=== PATIENT | female | born 1965 | race African-American/Black ===

== ENCOUNTER 2020-04-22 07:31 | Outpatient (CLI) | payer OTHER, SELFPAY ==
[2020-04-22 08:13] LABS: Add Urine Microscopic? YES; Appearance Urine Clear (Clear); Bacteria Urine Trace /hpf; Bilirubin Urine Negative (Negative); Blood Urine Negative (Negative); Color Urine Straw (Yellow); Glucose Urine UA Negative (Negative); Ketones Urine Negative (Negative); Leukocyte Esterase Ur Trace LEU/UL (Negative); Mucus Urine Rare /lpf; Nitrate Urine Negative (Negative); Protein Urine Negative (Negative); RBC Urine 0-2 /hpf (0-2); Specific Grav Ur 1.012 (1.001-1.035); Squamous Epithelial Cell Urine Occasional /hpf (Few); Urobilinogen Urine Negative mg/dL (<2.0); WBC Urine 0-3 /hpf
== END 2020-04-22 07:32 | disposition home or self-care (01) ==
LOC: ANHLAB 07:34
PROVIDERS: PCP Family Medicine; Visit Provider Family Medicine
DX: M54.6 Pain in thoracic spine (principal)
CPT/HCPCS: 81001

== ENCOUNTER 2020-04-22 07:58 | Outpatient (RCR) | payer OTHER, SELFPAY ==
--- NOTE | 2020-04-22 09:05 | PTOPEVAL ---
Thank you for referring Meka Davis to [facility] [place] 2[place]? The patient is scheduled to be seen for therapy? 3 x/week for 3 weeks. Please review, sign, date and return this plan of care BONNIE. I agree with and certify that the following plan of care is medically necessary. Referring Physician Date Admitting Provider: Attending Provider: Vitor Harding, Referring Provider: Vitor Harding, *PT Outpatient Evaluation Start: 04/22/20 08:02 Freq: Status: Active Protocol: Document 04/22/20 08:05 [facility] (Rec: 04/22/20 08:45 [facility] [id number]) Therapy Assessment Status Assessment Status Assessment Status Evaluation Outpatient Past Medical History Past Medical History Source of Past Medical History Patient Cardiovascular History Hx Hypertension Yes Evaluation Information Problem Diagnosis Acute thoracic pain Additional Evaluation Detail Reports lingering mild irritable pain that increases throughout the day. States she 's had this lingering pain before and knows she has poor posture. Reports no limitations with walking or sitting, some pain with standing, and some pain with work/household duties. Pt can only lift light weights. Subjective Information Pt reports she spent a weekend Query Text:As Reported By Patient/ moving exercise equipment Family around two weeks ago when she over did it. That monday she could hardly move due to mid back pain. 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 Her sap solution manager consultant ended up sending her home early. She went to Dr. Gottlieb on 04/16 where he prescribed her an anti inflammatory and meloxicam. She returned to work the next day 04/17 and reports she was able to do more at work with less pain. That she started feeling Pain Assessment Timing of Pain Assessment Timing of Pain Assessment Assessment Self Report Self Report Pain Level 0 Pain Score Pain Score 0: Self
--- NOTE | 2020-04-29 09:07 | PCPTNOTE ---
Pt called to cancel her remaining therapy appointment due to multiple deaths in the family. Will DC therapy services at this time.
--- NOTE | 2020-04-29 09:08 | PCPTNOTE ---
Admitting Provider: Attending Provider: Vitor HardingMD Patient:Meka Davis Date of :1965 Discharge Note Patient has not returned for any further treatments since 04/22/2020, therefore she will be discharged at this time. Patient?s initial visit was on 04/22/2020 08:00 and she had a total of 1 visits. She called to request all visits to be cancelled due to deaths in the family. The goals have been not met. Thank you for referring this patient to [facility]. Please review, sign, date and return this discharge summary BONNIE. I have been updated about the patient's current status and I agree with discharge from the above service at this time. Referring Physician Date
== END 2020-07-06 10:06 | disposition home or self-care (01) ==
LOC: ANHPT 07:58
PROVIDERS: PCP Family Medicine; Referring Provider Family Medicine; Visit Provider Family Medicine
DX: M54.6 Pain in thoracic spine (principal)
CPT/HCPCS: 97110; 97161

== ENCOUNTER 2020-10-23 14:46 | Outpatient (CLI) | payer OTHER, SELFPAY ==
[2020-10-23 15:34] LABS: Basophils Percent Auto 0.6 % (0.2-1.2); Eosinophils Absolute Auto 0.1 K/mm3 (0-0.3); Hematocrit 37.5 % (37.0-47.0); Hemoglobin 12.2 g/dL (12.0-15.0); Immature Granulocyte Absolute 0.02 K/mm3 (0.00-0.031); Immature Granulocyte Percent A 0.3 % (0-0.5); Lymphocytes Absolute Auto 3.58 K/mm3 (0.9-3.2); Lymphocytes Percent Auto 50.1 % (18.3-44.2); Mean Corpuscular HGB Conc 32.5 g/dl (32-36); Mean Corpuscular Hemoglobin 28.1 pg (26-34); Mean Corpuscular Volume 86.4 fl (80-100); Mean Platelet Volume 8.9 fl (7.4-10.4); Monocytes Absolute Auto 0.5 K/mm3 (0.1-0.6); Monocytes Percent Auto 6.4 % (2.6-8.5); Neutrophils Absolute Auto 2.9 K/mm3 (1.3-6.7); Neutrophils Percent Auto 40.6 % (45.5-73.1); Platelet Count Result 349 k/mm3 (150-375); Red Blood Count 4.34 M/mm3 (4.2-5.4); Red Cell Distribution Width 14.9 % (11.5-14.5); White Blood Count 7.2 K/mm3 (4.5-10.0)
[2020-10-23 15:44] LABS: Alanine Aminotransferase 17 U/L (4-35); Albumin Level 4.2 g/dL (3.5-5.1); Alkaline Phosphatase 85 U/L (38-126); Anion Gap 6 mmol/L (8-16); Aspartate Amino Transferase 29 U/L (14-36); Bilirubin,Total 0.3 mg/dL (0.2-1.3); Blood Urea Nitrogen 10 mg/dL (7-17); Calcium 9.2 mg/dL (8.4-10.2); Carbon Dioxide 30 mmol/L (22-30); Chloride 99 mmol/L (98-107); Cholesterol 249 mg/dL (0-200); Estimated Glomerular Filt Rate > 60; Glucose 84 mg/dL (65-105); HDL Direct 58 mg/dL; Potassium 3.9 mmol/L (3.4-5.0); Sodium 135 mmol/L (137-145); Triglycerides 132 mg/dL (<150); Uric Acid 6.5 mg/dL (2.5-7.5)
[2020-10-23 15:55] LABS: LDL Cholesterol Direct 130 mg/dL
[2020-10-23 16:10] LABS: Erythrocyte Sedimentation Rate 25 mm/hr (0-20)
[2020-10-23 17:04] LABS: Hepatitis C Virus Antibody Negative (Negative)
[2020-10-23 17:14] LABS: Rheumatoid Factor < 8.6 IU/ML (<12)
== END 2020-10-23 14:47 | disposition home or self-care (01) ==
PROVIDERS: PCP Family Medicine; Visit Provider Family Medicine
DX: M25.561 Pain in right knee (principal); M25.562 Pain in left knee; M79.642 Pain in left hand; G89.29 Other chronic pain
CPT/HCPCS: 36415; 80048; 80061; 80076; 84550; 85025; 85652; 86038; 86430; 86803

== ENCOUNTER 2020-10-28 15:01 | Outpatient (CLI) | payer OTHER, SELFPAY ==
--- NOTE | ~2020-10-28 | XR_ITS ---
EXAMINATION: XR knee LT 3V DATE: 10/28/2020 16:22 INDICATION: Chronic left knee pain. TECHNIQUE: 3 views of left knee were obtained. COMPARISON: None. FINDINGS: Bone alignment is normal. No fracture. There is mild tricompartmental osteoarthritis charac terized by tiny marginal osteophytes. No knee joint effusion. IMPRESSION: 1. Mild left knee osteoarthritis. Reviewed, dictated and finalized at location A. ER SALES
--- NOTE | ~2020-10-28 | XR_ITS ---
EXAMINATION: XR knee RT 3V DATE: 10/28/2020 16:22 INDICATION: Chronic right knee pain. TECHNIQUE: 3 views of right knee were obtained. COMPARISON: None. FINDINGS: Bone alignment is normal. No fracture. There is mild tricompartmental osteoarthritis charac terized by tiny marginal osteophytes. No knee joint effusion. IMPRESSION: 1. Mild right knee osteoarthritis. Reviewed, dictated and finalized at location A. N FILM EXTRUSION OPERATOR
--- NOTE | ~2020-10-28 | MM_ITS ---
EXAMINATION: MM screening vikram BI w parag HISTORY: Screening mammogram, family history of breast cancer in her mother and sister. TECHNIQUE: Craniocaudal and mediolateral oblique 3-D tomosynthesis images were obtained and synthetic 2-D images were generated. CAD analysis was submitted and interpreted. COMPARISON: No prior mammogram is available for comparison at this institution. BREAST PARENCHYMAL COMPOSITION: The breasts are almost entirely fatty. FINDINGS: RIGHT BREAST: There is focal asymmetry in the upper outer quadrant of the right breast near the site of excisional biopsy. LEFT BREAST: There are indeterminate grouped calcifications in the middle third of the upper inner br east. IMPRESSION: 1. Bilateral breast findings as described above which may represent the patient's baseline however no comparison is currently available. 2. Comparison with prior mammograms is necessary. BI-RADS Category 0: Incomplete: Needs comparison with prior mammograms. Reviewed, dictated and finalized at location A. COMMUNICATION LINES REPAIRER IMPRESSION: 1. Bilateral breast findings as described above which may represent the patient 's baseline however no comparison is currently available. 2. Comparison with prior mammograms is necessary. BI-RADS Category 0: Incomplete: Needs comparison with prior mammograms.
== END 2020-10-28 15:02 | disposition home or self-care (01) ==
PROVIDERS: PCP Family Medicine; Visit Provider Family Medicine
DX: Z12.31 Encounter for screening mammogram for malignant neoplasm of breast (principal); R92.8 Other abnormal and inconclusive findings on diagnostic imaging of breast; M17.0 Bilateral primary osteoarthritis of knee
CPT/HCPCS: 73562; 77063; 77067

== ENCOUNTER 2021-03-03 11:16 | Outpatient (CLI) | payer OTHER, SELFPAY ==
--- NOTE | 2021-03-03 11:30 | NEURO_ITS ---
Impression: # Complains of left hand numbness. # Mild left Carpal Tunnel Syndrome. # No ulnar neuropathy. # Normal needle/EMG exam. Nerve Conduction Studies Anti Sensory Summary Table Stim Site NR Peak (ms) P-T Amp (?V) Site1 Site2 Delta-P (ms) Dist (cm) Eliseo (m/s) Left Median Anti Sensory (2-3nd Digit) Wrist 4.5 13.6 Wrist 2-3nd Digit 4.5 14.0 31 Wrist 4.7 16.9 Wrist 2-3nd Digit 4.5 14.0 31 Left Radial Anti Sensory (Base 1st Digit) Wrist 2.0 38.3 Wrist Base 1st Digit 2.0 0.0 Left Ulnar Anti Sensory (5th Digit) Wrist 2.7 54.7 Wrist 5th Digit 2.7 14.0 52 Motor Summary Table Stim Site NR Onset (ms) O-P Amp (mV) Site1 Site2 Delta-0 (ms) Dist (cm) Eliseo (m/s) Left Median Motor (Abd Poll Brev) Wrist 4.1 2.0 Elbow Wrist 5.1 31.0 61 Elbow 9.2 4.3 Left Ulnar Motor (Abd Dig Minimi) Wrist 2.5 6.5 A Elbow Wrist 4.7 28.0 60 A Elbow 7.2 5.9 F Wave Studies NR F-Lat (ms) L-R F-Lat (ms) Left Median (Mrkrs) (Abd Poll Brev) 28.89 Left Ulnar (Mrkrs) (Abd Dig Min) 27.82 EMG Side Muscle Nerve Root Ins Act Fibs Amp Dur Recrt Comment Left 1stDorInt Ulnar C8-T1 Nml Nml Nml Nml Nml Left Ext Indicis Radial (Post Int) C7-8 Nml Nml Nml Nml Nml Left Ext Digitorum Radial (Post Int) C7-8 Nml Nml Nml Nml Nml Left BrachioRad Radial C5-6 Nml Nml Nml Nml Nml Left PronatorTeres Median C6-7 Nml Nml Nml Nml Nml Left Abd Poll Brev Median C8-T1 Nml Nml Nml Nml Nml MTDD
== END 2021-03-03 11:17 | disposition home or self-care (01) ==
PROVIDERS: PCP Family Medicine; Visit Provider Family Medicine
DX: M79.642 Pain in left hand (principal); G56.02 Carpal tunnel syndrome, left upper limb
CPT/HCPCS: 95886; 95909

== ENCOUNTER 2021-07-26 09:14 | Outpatient (CLI) | payer OTHER, SELFPAY ==
[2021-07-26 10:37] LABS: Alanine Aminotransferase 15 U/L (4-35); Albumin Level 4.1 g/dL (3.5-5.1); Alkaline Phosphatase 83 U/L (38-126); Anion Gap 4 mmol/L (8-16); Aspartate Amino Transferase 23 U/L (14-36); Bilirubin,Total 0.3 mg/dL (0.2-1.3); Blood Urea Nitrogen 18 mg/dL (7-17); Calcium 9.9 mg/dL (8.4-10.2); Carbon Dioxide 31 mmol/L (22-30); Chloride 104 mmol/L (98-107); Cholesterol 254 mg/dL (0-200); Estimated Glomerular Filt Rate 51; Glucose 102 mg/dL (65-110); HDL Direct 59 mg/dL; Potassium 4.3 mmol/L (3.4-5.0); Sodium 139 mmol/L (137-145); Triglycerides 77 mg/dL (<150)
[2021-07-26 10:47] LABS: LDL Cholesterol Direct 146 mg/dL
[2021-07-26 10:53] LABS: Basophils Percent Auto 0.8 % (0.2-1.2); Eosinophils Absolute Auto 0.1 K/mm3 (0-0.3); Eosinophils Percent Auto 2.7 % (0-4.4); Hematocrit 35.8 % (37.0-47.0); Hemoglobin 11.7 g/dL (12.0-15.0); Immature Granulocyte Absolute 0.02 K/mm3 (0.00-0.031); Immature Granulocyte Percent A 0.4 % (0-0.5); Lymphocytes Absolute Auto 2.41 K/mm3 (0.9-3.2); Lymphocytes Percent Auto 47.3 % (18.3-44.2); Mean Corpuscular HGB Conc 32.7 g/dl (32-36); Mean Corpuscular Hemoglobin 27.9 pg (26-34); Mean Corpuscular Volume 85.4 fl (80-100); Monocytes Absolute Auto 0.3 K/mm3 (0.1-0.6); Monocytes Percent Auto 6.5 % (2.6-8.5); Neutrophils Absolute Auto 2.2 K/mm3 (1.3-6.7); Neutrophils Percent Auto 42.3 % (45.5-73.1); Platelet Count Result 367 k/mm3 (150-375); Red Blood Count 4.19 M/mm3 (4.2-5.4); Red Cell Distribution Width 15.1 % (11.5-14.5); White Blood Count 5.1 K/mm3 (4.5-10.0)
[2021-07-26 11:21] LABS: Thyroid Stimulating Hormone Reflex 0.017 uIU/mL (0.465-4.68)
[2021-07-26 12:24] LABS: Free T4 Free Thyroxine Reflex 1.05 ng/dL (0.78-2.19)
== END 2021-07-26 09:15 | disposition home or self-care (01) ==
PROVIDERS: PCP Family Medicine; Visit Provider Family Medicine
DX: I10 Essential (primary) hypertension (principal)
CPT/HCPCS: 36415; 80048; 80061; 80076; 84439; 84443; 84480; 85025

== ENCOUNTER 2021-09-09 14:05 | Outpatient (CLI) | payer OTHER, SELFPAY ==
[2021-09-09 15:00] LABS: Anion Gap 10 mmol/L (8-16); Blood Urea Nitrogen 9 mg/dL (7-17); Calcium 9.7 mg/dL (8.4-10.2); Carbon Dioxide 25 mmol/L (22-30); Chloride 106 mmol/L (98-107); Estimated Glomerular Filt Rate 51; Glucose 100 mg/dL (65-110); Potassium 3.9 mmol/L (3.4-5.0); Sodium 141 mmol/L (137-145)
[2021-09-09 15:49] LABS: Thyroid Stimulating Hormone Reflex 0.023 uIU/mL (0.465-4.68)
[2021-09-10 09:42] LABS: Free T4 Free Thyroxine Reflex 1.21 ng/dL (0.78-2.19)
[2021-09-10 10:43] LABS: Total Triiodothyronine (T3) 1.13 NG/ML (0.97-1.69)
== END 2021-09-09 14:06 | disposition home or self-care (01) ==
LOC: ANHLAB 14:07
PROVIDERS: PCP Family Medicine; Visit Provider Family Medicine
DX: R79.89 Other specified abnormal findings of blood chemistry (principal); Z80.3 Family history of malignant neoplasm of breast
CPT/HCPCS: 36415; 80048; 81162; 84439; 84443; 84480

== ENCOUNTER 2021-09-28 08:47 | Outpatient (CLI) | payer OTHER, SELFPAY ==
--- NOTE | ~2021-09-28 | XR_ITS ---
EXAMINATION: XR chest 2V 09/28/2021 09:06 INDICATION: Thyroid nodule. Nocturnal hypoxemia. PROCEDURE: PA and lateral views of the chest COMPARISON: 09/09/2015 FINDINGS: The lungs are clear. The cardiomediastinal silhouette is within normal limits. There are no pleural effusions. There is no pneumothorax suspected. IMPRESSION: 1: NO ACUTE CARDIOPULMONARY DISEASE. Reviewed, dictated and finalized at location B. R BALANCER
== END 2021-09-28 08:48 | disposition home or self-care (01) ==
LOC: ANHIMG 08:52
PROVIDERS: PCP Family Medicine; Visit Provider Internal Medicine Pulmonary Disease
DX: R91.1 Solitary pulmonary nodule (principal); G47.34 Idiopathic sleep related nonobstructive alveolar hypoventilation; Z86.16 Personal history of COVID-19; Z78.9 Other specified health status; R93.89 Abnormal findings on diagnostic imaging of other specified body structures
CPT/HCPCS: 71046

== ENCOUNTER 2022-03-15 07:28 | Outpatient (CLI) | payer OTHER, SELFPAY ==
[2022-03-15 08:49] LABS: Basophils Percent Auto 0.8 % (0.2-1.2); Eosinophils Absolute Auto 0.1 K/mm3 (0-0.3); Eosinophils Percent Auto 2.4 % (0-4.4); Hematocrit 35.9 % (37.0-47.0); Hemoglobin 11.6 g/dL (12.0-15.0); Immature Granulocyte Absolute 0.01 K/mm3 (0.00-0.031); Immature Granulocyte Percent A 0.2 % (0-0.5); Lymphocytes Absolute Auto 2.21 K/mm3 (0.9-3.2); Lymphocytes Percent Auto 44.6 % (18.3-44.2); Mean Corpuscular HGB Conc 32.3 g/dl (32-36); Mean Corpuscular Hemoglobin 27.2 pg (26-34); Mean Corpuscular Volume 84.3 fl (80-100); Mean Platelet Volume 9.2 fl (7.4-10.4); Monocytes Absolute Auto 0.3 K/mm3 (0.1-0.6); Monocytes Percent Auto 6.1 % (2.6-8.5); Neutrophils Absolute Auto 2.3 K/mm3 (1.3-6.7); Neutrophils Percent Auto 45.9 % (45.5-73.1); Platelet Count Result 341 k/mm3 (150-375); Red Blood Count 4.26 M/mm3 (4.2-5.4); Red Cell Distribution Width 15.5 % (11.5-14.5)
[2022-03-15 08:58] LABS: Alanine Aminotransferase 15 U/L (6-35); Albumin Level 4.1 g/dL (3.5-5.1); Alkaline Phosphatase 73 U/L (38-126); Anion Gap 3 mmol/L (8-16); Aspartate Amino Transferase 22 U/L (14-36); Bilirubin,Total 0.4 mg/dL (0.2-1.3); Blood Urea Nitrogen 18 mg/dL (7-17); Calcium 9.5 mg/dL (8.4-10.2); Carbon Dioxide 29 mmol/L (22-30); Chloride 106 mmol/L (98-107); Cholesterol 258 mg/dL (0-200); Estimated Glomerular Filt Rate 56; Glucose 90 mg/dL (65-110); HDL Direct 67 mg/dL; Potassium 3.8 mmol/L (3.4-5.0); Sodium 138 mmol/L (137-145); Triglycerides 92 mg/dL (<150)
[2022-03-15 09:08] LABS: LDL Cholesterol Direct 114 mg/dL
[2022-03-15 09:45] LABS: Hepatitis C Virus Antibody Negative (Negative)
== END 2022-03-15 07:29 | disposition home or self-care (01) ==
LOC: ANHLAB 07:32
PROVIDERS: PCP Family Medicine; Visit Provider Family Medicine
DX: I10 Essential (primary) hypertension (principal); Z11.59 Encounter for screening for other viral diseases
CPT/HCPCS: 36415; 80048; 80061; 80076; 84443; 85025; 86803

== ENCOUNTER 2022-08-03 10:28 | Outpatient (CLI) | payer OTHER, SELFPAY ==
--- NOTE | ~2022-08-03 | MM_ITS ---
EXAMINATION: MM screening vikram BI w parag HISTORY: Screening mammogram, family history of breast cancer in her mother and sister. TECHNIQUE: Craniocaudal and mediolateral oblique 3-D tomosynthesis images were obtained and synthetic 2-D images were generated. CAD analysis was submitted and interpreted. COMPARISON: 10/28/2020 BREAST PARENCHYMAL COMPOSITION: There are scattered areas of fibroglandular density. FINDINGS: There are stable benign left breast calcifications. No suspicious mass, calcification, or a rchitectural distortion are identified in either breast to suggest malignancy. There has been no susp icious interval change. IMPRESSION: 1. No mammographic evidence of malignancy. 2. Recommend routine screening mammography in one year. BI-RADS Category 2: Benign finding(s). Reviewed, dictated and finalized at location A. IC SAFETY TELECOMMUNICATOR
== END 2022-08-03 10:29 | disposition home or self-care (01) ==
PROVIDERS: PCP Family Medicine; Visit Provider Family Medicine
DX: Z12.31 Encounter for screening mammogram for malignant neoplasm of breast (principal)
CPT/HCPCS: 77063; 77067

== ENCOUNTER 2022-09-05 11:12 | Emergency (ER) | payer OTHER, SELFPAY ==
[2022-09-05 11:21] VITALS: BP 130/82; PULSE 79; RESP 16; TEMP 37; O2SAT 100
--- NOTE | 2022-09-05 11:34 | ED.URI ---
HPI - URI/Sore Throat General Chief Complaint: Upper Respiratory Infection Stated Complaint: Sore Throat Time Seen by Provider: 09/05/22 11:36 Source: patient, RN notes reviewed and old records reviewed Mode of arrival: ambulatory Limitations: no limitations History of Present Illness HPI Narrative: 56-year-old female presents to the [facility] with complaints of a sore throat since yesterday. Has used throat lozenge or. Patient is not talking, is doing all the talking for her. denies any other symptoms. Related Data Home Medications Medication Instructions Recorded Confirmed hydrochlorothiazide 25 mg tablet 25 mg PO DAILY 01/06/22 01/06/22 lisinopril 20 mg tablet 20 mg PO DAILY 01/06/22 01/06/22 omeprazole 20 mg capsule,delayed 20 mg PO DAILY 01/06/22 01/06/22 release potassium chloride 20 mEq 20 meq PO DAILY 01/06/22 01/06/22 tablet,extended release(part/cryst) (Klor-Con M) triamterene 37.5 1 cap PO DAILY 01/06/22 01/06/22 mg-hydrochlorothiazide 25 mg capsule rosuvastatin 5 mg tablet mg 09/05/22 Allergies Allergy/AdvReac Type Severity Reaction Status Date / Time No Known Allergies Allergy Unknown Verified 09/05/22 11:24 Review of Systems Review of Systems: All systems reviewed & are unremarkable except as noted in HPI and below Constitutional: Constitutional: Reports no additional constitutional complaints Eyes: Eyes: Reports no additional eye complaints ENT: Reports as per HPI and Reports sore throat Cardiovascular: Cardiovascular: Reports no additional cardiovascular complaints, Denies chest pain and Denies dyspnea Respiratory: Respiratory: Reports no additional respiratory complaints, Denies chest congestion, Denies cough and Denies dyspnea Gastrointestinal: Gastrointestinal: Reports no additional gastrointestinal complaints, Denies abdominal pain, Denies nausea and Denies vomiting Musculoskeletal: Musculoskeletal: Reports no additional musculoskeletal complaints Integumentary/Breasts: Skin/Breast: Reports system reviewed and no additional complaints, except as docu Neurologic: Reports system reviewed and no additional complaints, except as documented Psychiatric: Psychiatric: Reports no additional psychiatric complaints Allergic/Immunologic: Allergic/Immunologic: Reports no additional allergic/immunologic complaints PMFSH Past Medical History Medical History H/O gastroesophageal reflux (GERD) History of high blood pressure Social History Social History Smoking status: Never smoker Alcohol intake: never Substance use: never Comments At the time of my signature, I reviewed and agree with the nursing past medical, surgical, social, and family history. There is no relevant family history pertinent to the patient complaint. Exam Const: General: cooperative, healthy appearing, comfortable, no acute distress, well developed, alert and well nourished Nutritional Appearance: well nourished Orientation/consciousness: patient oriented x3 Limitations: no limitations HENMT: Head: normal to inspection Ears: hearing grossly normal bilaterally and external ears normal Face/Nose/Sinus: Normal external nose present, Normal nares present, Normal nasal mucous membranes and turbinates present and normal facial exam Face and sinus: normal facial exam Mouth: Yes Normal oral and palatal mucosa present, Yes lip normal and Yes moist mucous membranes Throat: posterior oropharynx normal, uvula midline and postnasal drainage Eyes: General: appearance normal, both eyes and all related structures Alignment and Position: alignment normal Periorbital: periorbital findings normal Conjunctivae: conjunctivae normal Pupils: Equal, round and reactive pupils present EOM: EOMs intact bilaterally Neck: Neck: normal visual inspection, full ROM, no lymphadenopathy and no meninge
== END 2022-09-05 12:08 | disposition home or self-care (01) ==
PROVIDERS: Emergency Provider Nurse Practitioner; PCP Family Medicine
DX: J06.9 Acute upper respiratory infection, unspecified (principal); J02.9 Acute pharyngitis, unspecified; J04.0 Acute laryngitis; Z20.822 Contact with and (suspected) exposure to COVID-19; K21.9 Gastro-esophageal reflux disease without esophagitis; I10 Essential (primary) hypertension
CPT/HCPCS: 87081; 87426; 87804; 87880; 99213; C9803; G0463

== ENCOUNTER 2022-10-22 08:53 | Outpatient (CLI) | payer OTHER, SELFPAY ==
--- NOTE | ~2022-10-22 | CT_ITS ---
EXAMINATION: CTA chest PE protocol DATE: 10/22/2022 10:45 AUTOMOBILE MECHANIC APPRENTICE INDICATION: Chest wall pain. TECHNIQUE: Computed tomographic angiography (CTA) of the chest was performed with 100 mL Omnipaque-35 0 intravenous contrast. The dose-length product was 572.33 mGy-cm. Maximum intensity projection 3D-re constructions of the aorta and other arteries were constructed by the technologist on a separate work station. Automated exposure control and iterative reconstruction technique were employed. COMPARISON: Chest x-ray dated 09/28/2021. FINDINGS: No significant pleural or pericardial effusion. No thoracic lymphadenopathy. Small hiatal h ernia. Heart size normal. No significant vascular abnormality. There are cholecystectomy clips. Study is technically adequate without evidence for pulmonary embolism. There is focal consolidation in the right upper lobe with air bronchograms, compatible with pneumonia. No endobronchial lesions. IMPRESSION: 1. Focal consolidation right upper lobe with air bronchograms, consistent with pneumonia. Recommend f ollow-up x-ray to ensure resolution. 2: No evidence for pulmonary embolism. Reviewed, dictated and finalized at location A. MOBILE MECHANIC APPRENTICE IMPRESSION: 1. Focal consolidation right upper lobe with air bronchograms, consistent with pneumonia. Recommend follow-up x-ray to ensure resolution. 2: No evidence for pulmonary embolism.
[2022-10-22 10:18] LABS: Estimated Glomerular Filt Rate 47
== END 2022-10-22 08:54 | disposition home or self-care (01) ==
PROVIDERS: PCP Family Medicine; Visit Provider Internal Medicine Pulmonary Disease
DX: R07.89 Other chest pain (principal); R91.8 Other nonspecific abnormal finding of lung field
CPT/HCPCS: 71275; Q9967

== ENCOUNTER 2022-11-03 14:37 | Outpatient (CLI) | payer OTHER, SELFPAY ==
--- NOTE | 2022-11-05 15:30 | WPDPFTINT ---
PFT Procedure Performed PFT Procedure Performed Plethysmography (Lung Vol) Diffusing Cap (DLCO) Flow Vol Loop Spirometry w/o Bronchodil PFT Interpretation DOS: 11/03/2022 REQUESTING: Dr. Jonathon Cruz REASON FOR TESTING: Chest wall pain PULMONARY FUNCTION TESTS Repeatability is fair. Spirometry: FEV1 is 1.22 L, 54%, decreased. FVC is 2.64 L, 94%, normal. FEV1 /FVC is 46, reduced, consistent with airflow obstruction. No bronchodilator was administered. Lung volumes: Total lung capacity is 4.54 L, 102%, normal. Residual volume is 1.92 L, 107%, normal. RV/TLC is 42%, normal. No hyperinflation or air trapping. Airway resistance is 1.117 cmH20/L/sec, 71%. Diffusion: DLCO 15.8, 72%, low end of normal. DLCO /VA is 4.35, 97%, normal. Flow volume loop: Flow volume loop is flattened on inspiration and expiration. There were 2 loops to review. IMPRESSION: This study shows a moderately severe obstructive ventilatory impairment, normal lung volumes, and normal diffusion. The flow volume loops show flattening on inspiration and expiration. The reproducibility of the loop was fair. This may or may not be significant. No bronchodilator was administered. No prior studies for comparison. Clinical correlation is advised. Jessica Nair MD
--- NOTE | 2022-11-07 11:07 | WPDSIXMINUTE ---
Six Minute Walk Procedure Procedure Performed Pulmonary Stress Test (6 min walk) Six Minute Walk Six Minute Walk: DOS: 11/03/2022 ? REQUESTING: Dr. Jonathon Cruz ? REASON FOR TESTING: Chest wall pain SIX MINUTE WALK This study was conducted per ATS standards. The patient had an initial saturation of 98% and a pulse of 77. The patient was breathing room air during testing. The saturation ranged from 91% to 100%. Pulse ranged from 73 to 886 beats per minute. The distance walked was 274 m/ 900 ft. The patient had a Sofía dyspnea score of 0.5 at the beginning of the walk and Sofía dyspnea score of 1-2 at the end of the walk. IMPRESSION: This study shows no george hypoxemia. No supplemental oxygen is required with exertion. Jessica Nair MD
--- NOTE | 2022-11-08 01:31 | WPDPFTINT ---
PFT Procedure Performed PFT Procedure Performed Plethysmography (Lung Vol) Diffusing Cap (DLCO) Flow Vol Loop Spirometry w/o Bronchodil PFT Interpretation DOS: 11/03/2022 ? REQUESTING: Dr. Jonathon Cruz ? REASON FOR TESTING: Chest wall pain PULMONARY FUNCTION TESTS Repeatability and reliability was Grade B, fair. Spirometry: FEV1 was 1.22 L, 54%, reduced. FVC was 2.64 L, 94%, normal. FEV1/FVC was 46%, decreased, consistent with airflow obstruction. No bronchodilator was administered. Lung volumes: Total lung capacity was 4.56 L, 102% predicted, normal. Residual volume was 1.92 L, 107% predicted, normal. RV/TLC was 42%, normal. Airway resistance 1.17, 71%, normal. Diffusion: DLCO 15.8, 72% predicted, normal. DLCO/VA is 4.35, 97%, normal. Flow volume loop: Flow volume loop is irregular however this is not reproducible. IMPRESSION: The study shows moderate airflow obstruction with normal lung volumes and diffusion. No bronchodilator was given. Jessica Nair MD
== END 2022-11-03 14:38 | disposition home or self-care (01) ==
PROVIDERS: PCP Family Medicine; Visit Provider Internal Medicine Pulmonary Disease
DX: R07.89 Other chest pain (principal); R91.1 Solitary pulmonary nodule; G25.81 Restless legs syndrome; F51.01 Primary insomnia; Z78.9 Other specified health status; Z86.16 Personal history of COVID-19; G47.34 Idiopathic sleep related nonobstructive alveolar hypoventilation; Z68.34 Body mass index [BMI] 34.0-34.9, adult; R94.2 Abnormal results of pulmonary function studies
CPT/HCPCS: 94375; 94618; 94726; 94729

== ENCOUNTER 2023-01-16 15:44 | Outpatient (CLI) | payer OTHER, SELFPAY ==
[2023-01-16 16:26] LABS: Basophils Percent Auto 0.5 % (0.2-1.2); Eosinophils Absolute Auto 0.1 K/mm3 (0-0.3); Eosinophils Percent Auto 2.4 % (0-4.4); Hemoglobin 13.3 g/dL (12.0-15.0); Immature Granulocyte Absolute 0.02 K/mm3 (0.00-0.031); Immature Granulocyte Percent A 0.3 % (0-0.5); Lymphocytes Absolute Auto 2.78 K/mm3 (0.9-3.2); Mean Corpuscular HGB Conc 32.4 g/dl (32-36); Mean Corpuscular Hemoglobin 28.5 pg (26-34); Mean Corpuscular Volume 87.8 fl (80-100); Mean Platelet Volume 8.8 fl (7.4-10.4); Monocytes Absolute Auto 0.4 K/mm3 (0.1-0.6); Monocytes Percent Auto 6.8 % (2.6-8.5); Neutrophils Absolute Auto 2.5 K/mm3 (1.3-6.7); Platelet Count Result 293 k/mm3 (150-375); Red Blood Count 4.67 M/mm3 (4.2-5.4); Red Cell Distribution Width 14.1 % (11.5-14.5); White Blood Count 5.9 K/mm3 (4.5-10.0)
[2023-01-16 21:13] LABS: Iron 73 ug/dL (37-170)
[2023-01-16 21:22] LABS: Percent Iron Saturation 24 % (20-50)
[2023-01-16 21:39] LABS: Alanine Aminotransferase 27 U/L (6-35); Albumin Level 4.4 g/dL (3.5-5.1); Alkaline Phosphatase 79 U/L (38-126); Anion Gap 4 mmol/L (8-16); Aspartate Amino Transferase 29 U/L (14-36); Bilirubin,Total 0.5 mg/dL (0.2-1.3); Blood Urea Nitrogen 19 mg/dL (7-17); Calcium 9.6 mg/dL (8.4-10.2); Carbon Dioxide 32 mmol/L (22-30); Chloride 103 mmol/L (98-107); Cholesterol 218 mg/dL (0-200); Estimated Glomerular Filt Rate 56; Glucose 59 mg/dL (65-110); HDL Direct 78 mg/dL; LDL Cholesterol Direct 107 mg/dL; Magnesium 2.2 mg/dL (1.6-2.3); Potassium 3.7 mmol/L (3.4-5.0); Sodium 139 mmol/L (137-145); Triglycerides 84 mg/dL (<150)
[2023-01-17 12:49] LABS: Folic Acid > 20.0 ng/mL (2.76->20)
[2023-01-25 05:19] LABS: Red Blood Cell Folate 483 ng/mL RBC (>280)
== END 2023-01-16 15:45 | disposition home or self-care (01) ==
PROVIDERS: PCP Family Medicine
DX: E78.5 Hyperlipidemia, unspecified (principal); D64.9 Anemia, unspecified
CPT/HCPCS: 36415; 80053; 80061; 82607; 82746; 82747; 83540; 83550; 83735; 85025

== ENCOUNTER 2023-04-10 10:23 | Outpatient (CLI) | payer OTHER, SELFPAY ==
--- NOTE | ~2023-04-10 | XR_ITS ---
EXAMINATION: XR abdomen/kub 1V DATE: 04/10/2023 10:40 INDICATION: Right-sided low back pain. TECHNIQUE: A supine view of the abdomen on 2 radiographs was obtained. COMPARISON: None. FINDINGS: There are no dilated loops of bowel. There is a moderate volume of stool in colon. There ar e small calcifications in the pelvis. IMPRESSION: 1. Normal bowel gas pattern. 2. Small calcifications in the pelvis, likely phleboliths. Distal ureteral stone cannot be excluded o n either side. Reviewed, dictated and finalized at location A. IMPRESSION: 1. Normal bowel gas pattern. 2. Small calcifications in the pelvis, likely phleboliths. Distal ureteral ston e cannot be excluded on either side.
== END 2023-04-10 10:24 | disposition home or self-care (01) ==
PROVIDERS: PCP Family Medicine; Visit Provider Family Medicine
DX: M54.50 Low back pain, unspecified (principal); R93.5 Abnormal findings on diagnostic imaging of other abdominal regions, including retroperitoneum
CPT/HCPCS: 74018

== ENCOUNTER 2023-05-24 09:26 | Outpatient (CLI) | payer OTHER, SELFPAY ==
[2023-05-24 10:16] LABS: Basophils Percent Auto 0.4 % (0.2-1.2); Eosinophils Absolute Auto 0.3 K/mm3 (0-0.3); Eosinophils Percent Auto 3.2 % (0-4.4); Hematocrit 35.2 % (37.0-47.0); Hemoglobin 11.4 g/dL (12.0-15.0); Immature Granulocyte Absolute 0.12 K/mm3 (0.00-0.031); Immature Granulocyte Percent A 1.5 % (0-0.5); Lymphocytes Absolute Auto 3.29 K/mm3 (0.9-3.2); Lymphocytes Percent Auto 40.9 % (18.3-44.2); Mean Corpuscular HGB Conc 32.4 g/dl (32-36); Mean Corpuscular Hemoglobin 28.9 pg (26-34); Mean Corpuscular Volume 89.3 fl (80-100); Mean Platelet Volume 8.5 fl (7.4-10.4); Monocytes Absolute Auto 0.6 K/mm3 (0.1-0.6); Monocytes Percent Auto 7.2 % (2.6-8.5); Neutrophils Absolute Auto 3.8 K/mm3 (1.3-6.7); Neutrophils Percent Auto 46.8 % (45.5-73.1); Platelet Count Result 305 k/mm3 (150-375); Red Blood Count 3.94 M/mm3 (4.2-5.4); Red Cell Distribution Width 14.4 % (11.5-14.5); White Blood Count 8.1 K/mm3 (4.5-10.0)
[2023-05-24 10:26] LABS: Alanine Aminotransferase 29 U/L (6-35); Albumin Level 4.1 g/dL (3.5-5.1); Alkaline Phosphatase 101 U/L (38-126); Anion Gap 3 mmol/L (8-16); Aspartate Amino Transferase 31 U/L (14-36); Bilirubin,Total 0.4 mg/dL (0.2-1.3); Blood Urea Nitrogen 12 mg/dL (7-17); Calcium 9.2 mg/dL (8.4-10.2); Carbon Dioxide 33 mmol/L (22-30); Chloride 100 mmol/L (98-107); Estimated Glomerular Filt Rate > 60; Glucose 86 mg/dL (65-110); Sodium 136 mmol/L (137-145)
[2023-05-24 11:26] LABS: Appearance Urine Clear (Clear); Bacteria Urine None Seen /hpf; Bilirubin Urine Negative (Negative); Blood Urine Negative (Negative); Color Urine Yellow (Yellow); Glucose Urine UA Negative (Negative); Ketones Urine Negative (Negative); Leukocyte Esterase Ur 2+ LEU/UL (Negative); Need Manual Microscopic Reviewed; Nitrate Urine Negative (Negative); Non Pathogenic Casts 0-2; Protein Urine Negative (Negative); RBC Urine 0-2 /hpf (0-2); Squamous Epithelial Cell Urine Occasional /hpf (Few); Urobilinogen Urine 0.2 mg/dL (<2.0); WBC Urine 0-5 /hpf
[2023-05-24 11:29] LABS: Add Urine Microscopic? YES
== END 2023-05-24 09:27 | disposition home or self-care (01) ==
PROVIDERS: PCP Family Medicine
DX: R10.9 Unspecified abdominal pain (principal)
CPT/HCPCS: 36415; 80053; 81001; 85025

== ENCOUNTER 2023-05-24 13:00 | Outpatient (CLI) | payer OTHER, SELFPAY ==
--- NOTE | ~2023-05-24 | CT_ITS ---
EXAMINATION: CT abdomen pelvis wo con DATE: 05/24/2023 13:27 INDICATION: . Right flank and low back pain. Difficulty urinating. Elevated serum creatinine. Possibl e kidney stone. TECHNIQUE: Computed tomography (CT) of the abdomen and pelvis was performed without intravenous contr ast. Automated exposure control and iterative reconstruction technique were employed. Exam dose: 848 .37 mGy-cm total exam DLP. COMPARISON: None. FINDINGS: Mild patchy bibasilar atelectasis. Cardiomegaly. No pericardial or pleural effusion. Small sliding hiatal hernia. Status post cholecystectomy. 3.5 mm nonobstructing calculus, upper pole of right kidney. Small linear cortical calcification at the upper pole of the right kidney. No other urinary tract calculus or hydroureteronephrosis. The urinary bladder is unremarkable. Status post hysterectomy. There is mild atherosclerotic calcification and normal caliber of the abdominal aorta. No intraperito ashely or retroperitoneal or pelvic mass lesion or adenopathy or ascites. Normal appendix. Mild colonic diverticulosis; no CT evidence of diverticulitis. No bowel obstruction, bowel wall thick ening, pneumatosis or intraperitoneal free air. Degenerative spurring of the lower thoracic spine. Mild degenerative change of the lumbar spine. No s uspicious osteolytic or osteoblastic lesions. IMPRESSION: 3.5 mm nonobstructing right renal calculus; no ureteral calculus or hydroureteronephrosi s Status post cholecystectomy Normal appendix Mild colonic diverticulosis; no CT evidence of diverticulitis Reviewed, dictated and finalized at Location A. Reviewed, dictated and finalized at location A. IMPRESSION: 3.5 mm nonobstructing right renal calculus; no ureteral calculus o r hydroureteronephrosis Status post cholecystectomy Normal appendix Mild colonic diverticulosis; no CT evidence of diverticulitis
== END 2023-05-24 13:01 | disposition home or self-care (01) ==
PROVIDERS: PCP Family Medicine; Visit Provider Family Medicine
DX: R79.89 Other specified abnormal findings of blood chemistry (principal); R39.198 Other difficulties with micturition; N20.0 Calculus of kidney; K57.90 Diverticulosis of intestine, part unspecified, without perforation or abscess without bleeding; Z90.49 Acquired absence of other specified parts of digestive tract
CPT/HCPCS: 36415; 74176; 80053; 81001; 85025

== ENCOUNTER 2023-07-31 10:40 | Outpatient (CLI) | payer OTHER, SELFPAY ==
--- NOTE | ~2023-07-31 | MM_ITS ---
EXAMINATION: MM screening vikram BI w parag HISTORY: Screening mammogram TECHNIQUE: Craniocaudal and mediolateral oblique 3-D tomosynthesis images were obtained and synthetic 2-D images were generated. CAD analysis was submitted and interpreted. COMPARISON: 08/03/2022, 10/24/2020 bilateral screening mammogram examinations BREAST PARENCHYMAL COMPOSITION: There are scattered areas of fibroglandular density. FINDINGS: Bilateral benign calcifications are again noted. There is no evidence of suspicious mass, c alcification, or architectural distortion to suggest malignancy in either breast. There has been no s uspicious interval change. IMPRESSION: 1. No mammographic evidence of malignancy. 2. Recommend routine screening mammography in one year. BI-RADS Category 2: Benign finding(s). Reviewed, dictated and finalized at location A. NE LATHE SET UP OPERATOR TOOL
== END 2023-07-31 10:41 | disposition home or self-care (01) ==
LOC: ANHIMG 10:42
PROVIDERS: PCP Family Medicine; Visit Provider Family Medicine
DX: Z12.31 Encounter for screening mammogram for malignant neoplasm of breast (principal)
CPT/HCPCS: 77063; 77067

== ENCOUNTER 2023-09-23 10:30 | Outpatient (CLI) | payer OTHER, SELFPAY ==
--- NOTE | ~2023-09-23 | XR_ITS ---
XR lumbar spine min 4V DATE: 09/23/2023 11:01 INDICATION: Chronic worsening lumbar pain, bilateral radiculopathy TECHNIQUE: AP, lateral, coned lateral lumbosacral and bilateral oblique views COMPARISON: None FINDINGS: Mild thoracolumbar levoscoliosis. No fracture or bone destruction, spondylolysis or spondylolisthesis. There is mild degenerative spurr ing of the lumbar spine. The sacroiliac joints are intact. IMPRESSION: Mild degenerative spurring Reviewed, dictated and finalized at location A. BER IMPRESSION: Mild degenerative spurring
[2023-09-23 10:50] LABS: Basophils Percent Auto 0.8 % (0.2-1.2); Eosinophils Absolute Auto 0.1 K/mm3 (0-0.3); Eosinophils Percent Auto 2.5 % (0-4.4); Hematocrit 40.7 % (37.0-47.0); Immature Granulocyte Absolute 0.01 K/mm3 (0.00-0.031); Immature Granulocyte Percent A 0.2 % (0-0.5); Lymphocytes Percent Auto 43.8 % (18.3-44.2); Mean Corpuscular HGB Conc 31.9 g/dl (32-36); Mean Corpuscular Hemoglobin 28.1 pg (26-34); Mean Corpuscular Volume 87.9 fl (80-100); Mean Platelet Volume 8.6 fl (7.4-10.4); Monocytes Absolute Auto 0.3 K/mm3 (0.1-0.6); Monocytes Percent Auto 5.8 % (2.6-8.5); Neutrophils Absolute Auto 2.2 K/mm3 (1.3-6.7); Neutrophils Percent Auto 46.9 % (45.5-73.1); Platelet Count Result 305 k/mm3 (150-375); Red Blood Count 4.63 M/mm3 (4.2-5.4); Red Cell Distribution Width 14.8 % (11.5-14.5); White Blood Count 4.8 K/mm3 (4.5-10.0)
[2023-09-23 11:01] LABS: Alanine Aminotransferase 14 U/L (6-35); Albumin Level 4.1 g/dL (3.5-5.1); Alkaline Phosphatase 82 U/L (38-126); Anion Gap 5 mmol/L (8-16); Aspartate Amino Transferase 22 U/L (14-36); Bilirubin,Total 0.6 mg/dL (0.2-1.3); Blood Urea Nitrogen 12 mg/dL (7-17); Calcium 9.7 mg/dL (8.4-10.2); Carbon Dioxide 30 mmol/L (22-30); Chloride 104 mmol/L (98-107); Cholesterol 259 mg/dL (0-200); Estimated Glomerular Filt Rate > 60; Glucose 84 mg/dL (65-110); HDL Direct 65 mg/dL; Hemoglobin A1C 5.4 % (<5.7); Potassium 4.4 mmol/L (3.4-5.0); Sodium 139 mmol/L (137-145); Triglycerides 84 mg/dL (<150)
[2023-09-23 11:12] LABS: LDL Cholesterol Direct 137 mg/dL
[2023-09-23 11:51] LABS: Vitamin B12 > 1000.0 pg/mL (239-931)
[2023-09-23 12:09] LABS: Vitamin D 25 Hydroxy 48.2 ng/mL
[2023-09-23 12:23] LABS: Thyroid Stimulating Hormone Reflex 0.626 uIU/mL (0.465-4.68)
[2023-09-23 12:32] LABS: Iron 70 ug/dL (37-170)
[2023-09-23 12:40] LABS: Percent Iron Saturation 28 % (20-50)
== END 2023-09-23 10:31 | disposition home or self-care (01) ==
LOC: ANHLAB 10:34
PROVIDERS: PCP Family Medicine; Visit Provider Internal Medicine
DX: M46.06 Spinal enthesopathy, lumbar region (principal); M54.16 Radiculopathy, lumbar region; G25.81 Restless legs syndrome; Z13.1 Encounter for screening for diabetes mellitus; D50.9 Iron deficiency anemia, unspecified; E78.5 Hyperlipidemia, unspecified; Z68.33 Body mass index [BMI] 33.0-33.9, adult; Z13.29 Encounter for screening for other suspected endocrine disorder
CPT/HCPCS: 36415; 72110; 80053; 80061; 82306; 82607; 83036; 83540; 83550; 84443; 85025

== ENCOUNTER 2023-11-15 14:07 | Outpatient (CLI) | payer OTHER, SELFPAY ==
--- NOTE | ~2023-11-15 | XR_ITS ---
EXAMINATION: XR thoracic spine 3V DATE: 11/15/2023 14:34 INDICATION: Pain in thoracic spine. TECHNIQUE: 3 views of thoracic spine on 4 radiographs were obtained. COMPARISON: Chest CT 10/22/2022 FINDINGS: Thoracic kyphosis is noted. There is 4 degrees thoracic levocurvature. Vertebral body heigh ts are normal. Intervertebral disc heights are normal. There are endplate osteophytes at most levels. There is multilevel facet joint osteoarthritis, severe at many levels. Surgical clips in the right u pper quadrant are likely from cholecystectomy. There is a 3 cm mass in right lung upper lobe. IMPRESSION: 1. Mild thoracic spondylosis. 2. Thoracic kyphosis. 3. 3 cm mass in right lung upper lobe suspicious for primary bronchogenic carcinoma. Noncontrast ches t CT is recommended. Reviewed, dictated and finalized at location A. IMPRESSION: 1. Mild thoracic spondylosis. 2. Thoracic kyphosis. 3. 3 cm mass in right lung upper lobe suspicious for primary bronchogenic carci noma. Noncontrast chest CT is recommended.
--- NOTE | ~2023-11-15 | XR_ITS ---
EXAMINATION: XR lumbar spine 6V w bending DATE: 11/15/2023 14:33 INDICATION: Back pain. Postlaminectomy syndrome. TECHNIQUE: 7 views of lumbar spine including flexion and extension views and standing views were obta ined. COMPARISON: Lumbar spine radiographs 09/23/2023 FINDINGS: There is 3 degrees dextrocurvature of lumbar spine. The spine is hypomobile with flexion an d extension. Vertebral body heights are normal. Intervertebral disc heights are normal. There are end plate osteophytes at all levels. There is multilevel mild to moderate facet joint osteoarthritis. Perfecto gical clips in the right upper quadrant are likely from cholecystectomy. IMPRESSION: 1. Mild lumbar spondylosis. Reviewed, dictated and finalized at location A. IMPRESSION: 1. Mild lumbar spondylosis.
== END 2023-11-15 14:08 | disposition home or self-care (01) ==
LOC: ANHIMG 14:10
PROVIDERS: PCP Family Medicine; Visit Provider Anesthesiology Pain Medicine
DX: M43.04 Spondylolysis, thoracic region (principal); M40.294 Other kyphosis, thoracic region; R91.8 Other nonspecific abnormal finding of lung field; M43.06 Spondylolysis, lumbar region; M47.817 Spondylosis without myelopathy or radiculopathy, lumbosacral region
CPT/HCPCS: 72072; 72114

== ENCOUNTER 2023-11-19 10:44 | Outpatient (CLI) | payer OTHER, SELFPAY ==
--- NOTE | ~2023-11-19 | MR_ITS ---
MRI of the lumbar spine Clinical History: Back pain Technique: Axial T2-weighted images, and sagittal T1-weighted, T2-weighted, and T2 fat-sat images wer e acquired. Findings: There is no fracture or subluxation of the lumbar spine. Vertebral bodies maintain normal h eight and alignment. No bone marrow signal abnormality seen. At L1-L2, L2-L3, L3-L4, there is no disc bulge or herniation. There are mild facet joint degenerative changes. No spinal canal stenosis. There is mild bilateral neural foraminal narrowing at L3-L4. Neur al foramina at L1-L2 and L2-L3 are preserved. At L4-L5, there is mild disc bulge and moderate to advanced facet arthropathy. No george central canal stenosis. There is mild bilateral neural foraminal narrowing. At L5-S1, there is no disc bulge or herniation. There is moderate facet arthropathy. No central canal stenosis. There is mild bilateral neural foraminal narrowing. Paravertebral soft tissues are unremarkable. Impression: Mild degenerative spondylosis of the lower lumbar spine, as detailed above. Reviewed, dictated and finalized at [facility] M. Impression: Mild degenerative spondylosis of the lower lumbar spine, as detailed above.
== END 2023-11-19 10:45 | disposition home or self-care (01) ==
PROVIDERS: Visit Provider Anesthesiology Pain Medicine
DX: M47.27 Other spondylosis with radiculopathy, lumbosacral region (principal)
CPT/HCPCS: 72148

== ENCOUNTER 2023-12-05 16:28 | Outpatient (CLI) | payer OTHER, SELFPAY ==
[2023-12-05 17:21] LABS: Erythrocyte Sedimentation Rate 26 mm/hr (0-20)
[2023-12-08 21:24] LABS: Anti Cyclic Citrullinated Pept <16 Units (<20)
== END 2023-12-05 16:29 | disposition home or self-care (01) ==
LOC: ANHLAB 16:29
PROVIDERS: Visit Provider Anesthesiology Pain Medicine
DX: M25.50 Pain in unspecified joint (principal); M79.10 Myalgia, unspecified site
CPT/HCPCS: 36415; 85652; 86200

== ENCOUNTER 2024-01-03 07:30 | Outpatient (RCR) | payer OTHER, SELFPAY ==
--- NOTE | 2023-12-04 11:24 | PTOPEVAL1 ---
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 Her history includes chronic back and leg pain. Self assessment Oswestry score of 38% limitation in activity level. 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 With the evaluation: in standing, she has increased thoracic flexion and lumbar extension curvatures; weakness of trunk and hips; standing trunk extension and prone hip extension increases her pain; Skilled PT services are indicated for modalities to decrease pain, therapeutic exercises to increase trunk and LE strength with education for posture and HEP. Plan of Care Interventions Electrical Stimulation,Hot Pack/Cold Pack,Manual Therapy,Mechanical Traction,Neuro Re-education, Patient Education,Therapeutic Activities, Therapeutic Exercise,Ultrasound,Other Other Interventions taping, IASTM PT Services Indicated Yes Treatment Frequency and 1-2x/wk for 8 visits total Duration These
--- NOTE | 2023-12-04 11:24 | OPREHPOC ---
Outpatient Therapy Plan of Care This is a Multidisciplinary Plan of Care that may contain components documented by all disciplines (PT, OT, and ST.) PT Problem 1 PT Problem #1 Knowledge Deficit PT Goal 1 Goal * indep with HEP PT Problem 2 PT Problem #2 Pain PT Goal 1 Goal 1* decrease pain rating at worst of 7/10 2* Oswestry self assessment rating of 26% limitation in activity 3* pt report awakening from sleep 1 x/week PT Problem 3 PT Problem #3 Impaired Strength PT Goal 1 Goal increase strength for improved mobility and activity level: 1* 2 minute walking test distance of 500' 2* perform R and L mat exercises x 20 reps with good stability
--- NOTE | 2023-12-22 08:31 | PCPTNOTE ---
Patient cancelled secondary to ill.
--- NOTE | 2024-01-10 08:36 | PCPTNOTE ---
Pt NS visit today.
--- NOTE | 2024-01-15 13:04 | PTOPDC ---
Assessment and note entered by Angie Aviles, PT Discharge Information Assessment Status Discharge - Pt Not Present Diagnosis dorsalgia, thoracic pain, muscle spasms, chronic pain Assessment PT Clinical Summary Meka has received 2 PT sessions. She did not show for 1 and called//canceled 1 appointment. She called on 01-11-24 and stated she wanted to cancel all of her remaining therapy appointments; reason was not given. Discharge PT per pt request. The goals were not addressed. Plan of Care PT Services Indicated No
== END 2024-01-15 13:45 | disposition home or self-care (01) ==
LOC: ANHPT 07:30
PROVIDERS: Visit Provider Anesthesiology Pain Medicine
DX: M54.6 Pain in thoracic spine (principal); M54.9 Dorsalgia, unspecified; M79.10 Myalgia, unspecified site; G89.29 Other chronic pain
CPT/HCPCS: 97014; 97110; 97140; 97161; 97530; 99199; G0283

== ENCOUNTER 2024-10-21 12:19 | Outpatient (CLI) | payer OTHER, SELFPAY ==
[2024-10-21 13:28] LABS: Cortisol Random 5.06 ug/dL
--- OUTSIDE RECORDS SUMMARY | 2024-10-21 14:44 | XMS_ITS | Encounter Summary ---
Author Organization [facility] Facility Care Team Providers Care Interior Paneler Name Role Phone No, Physician Primary Care Provider Vitor Harding DO Primary Care Provider + Urbano Donovan MD Unavailable [phone] Michelle Claudio NP Primary Care Provider Encounter Details Date Type Department Care Team (Latest Contact Info) Description 09/11/2018 Orders Only [facility] Provider, MD Gayatri [address] [place] [address] Social History Tobacco Use Types Packs/Day Years Used Date Smoking Tobacco: Never Assessed Comments Unknown Sex and Gender Information Value Date Recorded Sex Assigned at Not on file Legal Sex Female 1:12 AM JAVASCRIPT UI DEVELOPER Gender Identity Female 02/27/2022 8:55 PM CDT Sexual Orientation Straight 02/27/2022 8: 55 PM CDT documented as of this encounter Plan of Treatment Not on file documented as of this encounter Procedures Procedure Name Priority Date/Time Associated Diagnosis Comments PROCEDURE - RESULT 08/10/2018 12 :00 AM JAVASCRIPT UI DEVELOPER documented in this encounter Results * PROCEDURE - RESULT (08/10/2018 12:00 AM JAVASCRIPT UI DEVELOPER) Narrative 08/10/2018 12:00 AM JAVASCRIPT UI DEVELOPER Ordered by an unspecified provider. Historical Provider Final Res ult documented in this encounter Visit Diagnoses Not on filedocumented in this encounter Additional Health Concerns Infection Onset Date Last Indicated Resolved Time COVID: Suspected 08/20/2023 08/20/2023 08/20/2023 9:03 PM JAVASCRIPT UI DEVELOPER COVID19 08/20/2023 08/20/2023 08/30/2023 3:05 AM JAVASCRIPT UI DEVELOPER COVID: Recovered Comment:Added based on recent COVID infection. 08/30/2023 09/18/2023 11/28/2023 3:06 AM C DT documented as of this encounter Care Teams Interior Paneler Relationship Specialty Start Date End Date No, Physician PCP - General 07/14/18 10/17/18 Vitor Harding DO PCP - General 10/18/18 09/17/23 Michelle Claudio NP [address] [place] [address] [place] [address] PCP - General Internal Medicine 09/18/23 Urbano Donovan MD Consulting Physician Plastic Surgery 08/02/22 09/17/23 documented as of this encounter
--- OUTSIDE RECORDS SUMMARY | 2024-10-21 14:44 | XMS_ITS | Encounter Summary ---
Author Organization [facility] Facility Care Team Providers Care Insurance Verify Rep Name Role Phone No, Physician Primary Care Provider [phone] Vitor Harding DO Primary Care Provider + Urbano Donovan MD Unavailable [phone] Michelle Claudio NP Primary Care Provider [phone] Encounter Details Date Type Department Care Team (Latest Contact Info) Description 07/06/2018 Orders Only [facility] Provider, MD Gayatri [address] [place] [address] Social History Tobacco Use Types Packs/Day Years Used Date Smoking Tobacco: Never Assessed Comments Unknown Sex and Gender Information Value Date Recorded Sex Assigned at Not on file Legal Sex Female 1:12 AM BARGE CAPTAIN Gender Identity Female 02/27/2022 8:55 PM CDT Sexual Orientation Straight 02/27/2022 8: 55 PM CDT documented as of this encounter Plan of Treatment Not on file documented as of this encounter Procedures Procedure Name Priority Date/Time Associated Diagnosis Comments SCAN - PATHOLOGY 07/12/2018 12:0 0 AM BARGE CAPTAIN PROCEDURE - RESULT 06/22/2018 12 :00 AM CDT documented in this encounter Results * SCAN - PATHOLOGY (07/12/2018 12:00 AM BARGE CAPTAIN) Narrative 07/12/2018 12:00 AM BARGE CAPTAIN Ordered by an unspecified provider. us Historical Provider MD Final Res ult * PROCEDURE - RESULT (06/22/2018 12:00 AM CDT) Narrative 06/22/2018 12:00 AM CDT Ordered by an unspecified provider. us Historical Provider Final Res ult documented in this encounter Visit Diagnoses Not on filedocumented in this encounter Additional Health Concerns Infection Onset Date Last Indicated Resolved Time COVID: Suspected 08/20/2023 08/20/2023 08/20/2023 9:03 PM BARGE CAPTAIN COVID19 08/20/2023 08/20/2023 08/30/2023 3:05 AM BARGE CAPTAIN COVID: Recovered Comment:Added based on recent COVID infection. 08/30/2023 09/18/2023 11/28/2023 3:06 AM C DT documented as of this encounter Care Teams Insurance Verify Rep Relationship Specialty Start Date End Date No, Physician PCP - General 07/14/18 10/17/18 Vitor Harding DO PCP - General 10/18/18 09/17/23 Michelle Claudio NP [address] [facility] [address] [address] PCP - General Internal Medicine 09/18/23 Urbano Donovan MD Consulting Physician Plastic Surgery 08/02/22 09/17/23 documented as of this encounter
--- OUTSIDE RECORDS SUMMARY | 2024-10-21 14:44 | XMS_ITS | Encounter Summary ---
Author Organization [facility] Facility Care Team Providers Care Grant Writer Name Role Phone No, Physician Primary Care Provider [phone] Vitor Harding DO Primary Care Provider + Urbano Donovan MD Unavailable [phone] Michelle Claudio NP Primary Care Provider [phone] Encounter Details Date Type Department Care Team (Latest Contact Info) Description 08/10/2018 Orders Only [facility] Provider, MD Gayatri [address] [place] [address] Social History Tobacco Use Types Packs/Day Years Used Date Smoking Tobacco: Never Assessed Comments Unknown Sex and Gender Information Value Date Recorded Sex Assigned at Not on file Legal Sex Female 1:12 AM HOG SLAUGHTERER Gender Identity Female 02/27/2022 8:55 PM CDT Sexual Orientation Straight 02/27/2022 8: 55 PM CDT documented as of this encounter Plan of Treatment Not on file documented as of this encounter Procedures Procedure Name Priority Date/Time Associated Diagnosis Comments PROCEDURE - RESULT 08/10/2018 12 :00 AM HOG SLAUGHTERER documented in this encounter Results * PROCEDURE - RESULT (08/10/2018 12:00 AM HOG SLAUGHTERER) Narrative 08/10/2018 12:00 AM HOG SLAUGHTERER Ordered by an unspecified provider. Historical Provider Final Res ult documented in this encounter Visit Diagnoses Not on filedocumented in this encounter Additional Health Concerns Infection Onset Date Last Indicated Resolved Time COVID: Suspected 08/20/2023 08/20/2023 08/20/2023 9:03 PM HOG SLAUGHTERER COVID19 08/20/2023 08/20/2023 08/30/2023 3:05 AM HOG SLAUGHTERER COVID: Recovered Comment:Added based on recent COVID infection. 08/30/2023 09/18/2023 11/28/2023 3:06 AM C DT documented as of this encounter Care Teams Grant Writer Relationship Specialty Start Date End Date No, Physician PCP - General 07/14/18 10/17/18 Vitor Harding DO PCP - General 10/18/18 09/17/23 Michelle Claudio NP [address] [facility] [address] [place] [address] [place] [address] PCP - General Internal Medicine 09/18/23 Urbano Donovan MD Consulting Physician Plastic Surgery 08/02/22 09/17/23 documented as of this encounter
--- OUTSIDE RECORDS SUMMARY | 2024-10-21 14:45 | XMS_ITS | Encounter Summary ---
Author Organization [facility] Healthcare Address [address] [place] [address] Care Team Providers Care Archival Studies Professor Name Role Phone Eulalio Claudiosssergio SONI Primary Care Provider [phone] Encounter Details Date Type Department Care Team (Late st Contact Info) Description 10/16/2023 Orders Only [facility] [address] [place] [address] Scanning, Provider Social History Tobacco Use Types Packs/Day Years Used Date Smoking Tobacco: Never Smokeless Tobacco: Never Alcohol Use Standard Drinks/Week Comments Never 0 (1 standard drink = 0.6 oz pur e alcohol) AUDIT-C Answer Date Recorded Q1: How often do you have a drink containing alc ohol? Never 08/02/2022 Average Number of Drinks Not on file 022 Frequency of Binge Drinking Not on file 07/06 PHQ-2 Answer Date Recorded PHQ-2 Total Score 0 09/18/2023 Personal Safety Answer Date Recorded Have you ever been in or are you currently in a harmful physical or emotional relationship or is someone making you feel afraid or unsafe? Denies 08/20/2023 Comments No Sex and Gender Information Value Date Recorded Sex Assigned at Not on file Legal Sex Female 1:12 AM DUAL RATE DEALER Gender Identity Female 02/27/2022 8:55 PM CDT Sexual Orientation Straight 02/27/2022 8: 55 PM CDT documented as of this encounter Plan of Treatment Not on file documented as of this encounter Procedures Procedure Name Priority Date/Time Associated Diagnosis Comments SCAN - RADIOLOGY/IMAGING 10/16/2023 9:31 PM DUAL RATE DEALER documented in this encounter Results * SCAN - RADIOLOGY/IMAGING (10/16/2023 9:31 PM DUAL RATE DEALER) Anatomical Region Laterality Modality Other us Provider Scanning Final Result documented in this encounter Visit Diagnoses Not on filedocumented in this encounter Additional Health Concerns Infection Onset Date Last Indicated Resolved Time COVID: Recovered Comment:Added based on recent COVID infection. 08/30/2023 09/18/2023 11/28/2023 3:06 AM C DT documented as of this encounter Care Teams Archival Studies Professor Relationship Specialty Start Date End Date Michelle Claudio NP [address] [place] [address] PCP - General Internal Medicine 09/18/23 documented as of this encounter
--- OUTSIDE RECORDS SUMMARY | 2024-10-21 14:45 | XMS_ITS | Encounter Summary ---
Author Organization [facility] Facility Care Team Providers Care Radio Equipment Installer Name Role Phone No, Physician Primary Care Provider [phone] Vitor Harding DO Primary Care Provider + Urbano Donovan MD Unavailable [phone] Michelle Claudio NP Primary Care Provider [phone] Encounter Details Date Type Department Care Team (Latest Contact Info) Description 08/09/2017 Orders Only [facility] Provider, MD Gayatri [address] [place] [address] Social History Tobacco Use Types Packs/Day Years Used Date Smoking Tobacco: Never Assessed Comments Unknown Sex and Gender Information Value Date Recorded Sex Assigned at Not on file Legal Sex Female 1:12 AM CORN HUSK BALER Gender Identity Female 02/27/2022 8:55 PM CDT Sexual Orientation Straight 02/27/2022 8: 55 PM CDT documented as of this encounter Plan of Treatment Not on file documented as of this encounter Procedures Procedure Name Priority Date/Time Associated Diagnosis Comments SCAN - LABS 09/05/2017 12:00 AM CORN HUSK BALER documented in this encounter Results * SCAN - LABS (09/05/2017 12:00 AM CORN HUSK BALER) Narrative 09/05/2017 12:00 AM CORN HUSK BALER Ordered by an unspecified provider. Historical Provider Final Res ult documented in this encounter Visit Diagnoses Not on filedocumented in this encounter Additional Health Concerns Infection Onset Date Last Indicated Resolved Time COVID: Suspected 08/20/2023 08/20/2023 08/20/2023 9:03 PM CORN HUSK BALER COVID19 08/20/2023 08/20/2023 08/30/2023 3:05 AM CORN HUSK BALER COVID: Recovered Comment:Added based on recent COVID infection. 08/30/2023 09/18/2023 11/28/2023 3:06 AM C DT documented as of this encounter Care Teams Radio Equipment Installer Relationship Specialty Start Date End Date No, Physician PCP - General 07/14/18 10/17/18 Vitor Harding DO PCP - General 10/18/18 09/17/23 Michelle Claudio NP [address] [facility] [address] [place] [address] [place] [id number] PCP - General Internal Medicine 09/18/23 Urbano Donovan MD Consulting Physician Plastic Surgery 08/02/22 09/17/23 documented as of this encounter
--- OUTSIDE RECORDS SUMMARY | 2024-10-21 14:45 | XMS_ITS | Encounter Summary ---
Author Organization [facility] Facility Care Team Providers Care Crisis Mental Health Therapist Name Role Phone No, Physician Primary Care Provider [phone] Vitor Harding DO Primary Care Provider + Urbano Donovan MD Unavailable [phone] Michelle Claudio NP Primary Care Provider [phone] Encounter Details Date Type Department Care Team (Latest Contact Info) Description 04/15/2016 Orders Only [facility] Provider, MD Gayatri [address] [place] [address] Social History Tobacco Use Types Packs/Day Years Used Date Smoking Tobacco: Never Assessed Comments Unknown Sex and Gender Information Value Date Recorded Sex Assigned at Not on file Legal Sex Female 1:12 AM OBSTETRICS GYN PHYSICIAN Gender Identity Female 02/27/2022 8:55 PM CDT Sexual Orientation Straight 02/27/2022 8: 55 PM CDT documented as of this encounter Plan of Treatment Not on file documented as of this encounter Procedures Procedure Name Priority Date/Time Associated Diagnosis Comments CARDIOLOGY REPORT 04/15/2016 12: 00 AM CDT CARDIOLOGY REPORT 04/15/2016 12: 00 AM CDT documented in this encounter Results * CARDIOLOGY REPORT (04/15/2016 12:00 AM CDT) Anatomical Region Laterality Modality Other Narrative 04/15/2016 12:00 AM CDT Ordered by an unspecified provider. us Historical Provider CV CARDIAC SERVICES PROCE DURES Final Result * CARDIOLOGY REPORT (04/15/2016 12:00 AM CDT) Anatomical Region Laterality Modality Other Narrative 04/15/2016 12:00 AM CDT Ordered by an unspecified provider. us Historical Provider CV CARDIAC SERVICES PROCE DURES Final Result documented in this encounter Visit Diagnoses Not on filedocumented in this encounter Additional Health Concerns Infection Onset Date Last Indicated Resolved Time COVID: Suspected 08/20/2023 08/20/2023 08/20/2023 9:03 PM OBSTETRICS GYN PHYSICIAN COVID19 08/20/2023 08/20/2023 08/30/2023 3:05 AM OBSTETRICS GYN PHYSICIAN COVID: Recovered Comment:Added based on recent COVID infection. 08/30/2023 09/18/2023 11/28/2023 3:06 AM C DT documented as of this encounter Care Teams Crisis Mental Health Therapist Relationship Specialty Start Date End Date No, Physician PCP - General 07/14/18 10/17/18 Vitor Harding DO PCP - General 10/18/18 09/17/23 Michelle Claudio NP [address] [facility] [address] [place] [address] [place] [address] PCP - General Internal Medicine 09/18/23 Urbano Donovan MD Consulting Physician Plastic Surgery 08/02/22 09/17/23 documented as of this encounter
--- OUTSIDE RECORDS SUMMARY | 2024-10-21 14:45 | XMS_ITS | Encounter Summary ---
Author Organization [facility] Facility Care Team Providers Care Director Retail Brand Development Name Role Phone No, Physician Primary Care Provider [phone] Vitor Harding DO Primary Care Provider + Urbano Donovan MD Unavailable [phone] Michelle Claudio NP Primary Care Provider [phone] Encounter Details Date Type Department Care Team (Latest Contact Info) Description 08/09/2016 Orders Only [facility] Provider, MD Gayatri [address] [place] [address] Social History Tobacco Use Types Packs/Day Years Used Date Smoking Tobacco: Never Assessed Comments Unknown Sex and Gender Information Value Date Recorded Sex Assigned at Not on file Legal Sex Female 1:12 AM PRODUCT SUPPORT REPRESENTATIVE Gender Identity Female 02/27/2022 8:55 PM CDT Sexual Orientation Straight 02/27/2022 8: 55 PM CDT documented as of this encounter Plan of Treatment Not on file documented as of this encounter Procedures Procedure Name Priority Date/Time Associated Diagnosis Comments SCAN - LABS 08/10/2016 12:00 AM PRODUCT SUPPORT REPRESENTATIVE documented in this encounter Results * SCAN - LABS (08/10/2016 12:00 AM PRODUCT SUPPORT REPRESENTATIVE) Narrative 08/10/2016 12:00 AM PRODUCT SUPPORT REPRESENTATIVE Ordered by an unspecified provider. Historical Provider Final Res ult documented in this encounter Visit Diagnoses Not on filedocumented in this encounter Additional Health Concerns Infection Onset Date Last Indicated Resolved Time COVID: Suspected 08/20/2023 08/20/2023 08/20/2023 9:03 PM PRODUCT SUPPORT REPRESENTATIVE COVID19 08/20/2023 08/20/2023 08/30/2023 3:05 AM PRODUCT SUPPORT REPRESENTATIVE COVID: Recovered Comment:Added based on recent COVID infection. 08/30/2023 09/18/2023 11/28/2023 3:06 AM C DT documented as of this encounter Care Teams Director Retail Brand Development Relationship Specialty Start Date End Date No, Physician PCP - General 07/14/18 10/17/18 Vitor Harding DO PCP - General 10/18/18 09/17/23 Michelle Claudio NP [address] [place] [address] [place] [address] PCP - General Internal Medicine 09/18/23 Urbano Donovan MD Consulting Physician Plastic Surgery 08/02/22 09/17/23 documented as of this encounter
--- OUTSIDE RECORDS SUMMARY | 2024-10-21 14:45 | XMS_ITS | Referral Summary ---
Author Organization [facility] [address] [facility] Address [address] [place] [address] Care Team Providers Care French Binding Folder Name Role Phone Michelle Claudio NP Primary Care Provider [phone] Encounters Date Type Department Care Team Description 10/17/2024 1:45 PM AUTOMATIC PAINT SPRAYER OPERATOR Office Visit [facility] Internal Medicine [address] [place] [address] [address] [place] [phone] Michelle Clauido NP BMI 30.0-30.9,adult (Primary Dx); Encounter for drug screening; NAVEEN (generalized anxiety disorder); BRCA2 gene mutation positive in female; Screening mammogram for breast cancer; Encounter for screening colonoscopy; Hypokalemia; Moderate episode of recurrent major depressive disorder (HCC); Mixed hyperlipidemia; Primary hypertension; Restless legs syndrome; Gastroesophageal reflux disease without esophagitis; Primary insomnia; Claustrophobia 08/05/2024 Orders Only [facility] Internal Medicine [address] [place] [phone] Michelle Claudio NP from Last 3 Months Allergies No known active allergies Medications ondansetron ODT (ZOFRAN-ODT) 4 mg disintegrating tablet Take 1 tablet (4 mg total) by mouth every 8 (eight) hours as needed for nausea 20 tablet 05/16/20 24 Active lisinopriL (PRINIVIL,ZESTRIL) 20 mg tabletIndications: Primary hypertension Take 1 tablet (20 mg total) by mouth daily 90 tablet 3 10/17/19 25 Active omeprazole (PriLOSEC) 20 mg capsuleIndications :Gastroesophageal reflux disease without esophagitis Take 1 capsule (20 mg total) by mouth daily 90 capsule 10/17/19 25 Active hydrOXYzine (ATARAX) 25 mg tabletIndications: NAVEEN (generalized anxiety disorder) Take 1 tablet (25 mg total) by mouth nightly 90 tablet 3 10/17/19 25 Active cyclobenzaprine (FLEXERIL) 10 mg tabletIndications: Restless legs syndrome Take 1 tablet (10 mg total) by mouth 3 (three) times a day as needed for muscle spasms 90 tablet 10/17/19 25 Active triamterene-hydroC HLOROthiazide 37.5-25 mg per tablet/capsuleIndi cations:Primary hypertension Take 1 tablet/capsule by mouth daily 90 tablet 3 10/17/19 25 Active potassium chloride ER 20 mEq CR tabletIndications: Hypokalemia Take 1 tablet (20 mEq total) by mouth daily 90 tablet 10/17/19 25 Active eszopiclone (LUNESTA) 1 mg tabletIndications: Insomnia Take 1 tablet (1 mg total) by mouth daily Take immediately before bedtime 90 tablet 1 10/17/19 25 Active tirzepatide, weight loss, (Zepbound) 5 mg/0.5 mL pen injectorIndication s:BMI 30.0-30.9,adult Inject 0.5 mL (5 mg total) under the skin every 7 days 2 mL 10/17/19 25 Active scopolamine 1 mg over 3 days patch [address] 1 patch on the skin every third day as needed (nausea) 4 patch 1 03/13/20 24 025 Discontin ued(Thera py completed ) omeprazole (PriLOSEC) 20 mg capsule TAKE 1 CAPSULE BY MOUTH DAILY 90 capsule 3 04/30/20 24 025 Discontin ued(Reord er) triamterene-hydroC HLOROthiazide 37.5-25 mg per tablet TAKE 1 TABLET BY MOUTH DAILY 90 tablet 3 04/30/20 24 025 Discontin ued(Reord er) lisinopriL (PRINIVIL,ZESTRIL) 20 mg tablet TAKE 1 TABLET BY MOUTH DAILY 90 tablet 3 05/16/20 24 025 Discontin ued(Reord er) potassium chloride ER 20 mEq CR tabletIndications: Hypokalemia TAKE 1 TABLET BY MOUTH DAILY 90 tablet 3 05/16/20 24 025 Discontin ued(Reord er) cyclobenzaprine (FLEXERIL) 10 mg tablet Take 1 tablet (10 mg total) by mouth 3 (three) times a day as needed for muscle spasms 30 tablet 06/27/20 24 025 Discontin ued(Reord er) hydrOXYzine (ATARAX) 25 mg tablet TAKE 1 TABLET BY MOUTH EVERY NIGHT 90 tablet 07/26/20 24 025 Discontin ued(Reord er) tirzepatide, weight loss, (Zepbound) 7.5 mg/0.5 mL pen injector Inject 0.5 mL (7.5 mg total) under the skin every 7 days 2 mL 3 08/05/20 24 025 Discontin ued(Thera py completed ) triamterene-hydroC HLOROthiazide 37.5-25 mg per tablet/capsule Take 1 tablet/capsule by mouth daily 30 tablet 10/04/19 025 Discontin ued(Reord er) potassium chloride ER 20 mEq CR tabletIndications: Hypokalemia Take 1 tablet (20 mEq total) by mouth daily 30 tablet 10/04/19 25 025 Discontin ued(Reord er) omeprazole (PriLOSEC) 20 mg capsule Take 1 capsule (20 mg total) by mouth daily 30 capsule 10/04/19 025 Discontin ued(Reord er) lisinopriL (PRINIVIL,ZESTRIL) 20 mg tablet Take 1 tablet (20 mg total) by mouth daily 30 tablet 10/04/19 25 025 Discontin ued(Reord er) hydrOXYzine (ATARAX) 25 mg tablet Take 1 tablet (25 mg total) by mouth nightly 30 tablet 10/04/19 25 025 Discontin ued(Reord er) Active Problems Problem Noted Date Diagnosed Date Encounter for weight management 12/15/2023 Assessment & Plan (03/14/2024 10:25 AM CDT): We will continue Zepbound at 5 mg with the intention to increase to 7.5 mg at 1 month. Medication was sent to requested pharmacy. Discussed medication desired effects, potential side effects, and how to administer the medication. Nonpharmacological interventions such as low carb diet, high in vegetables and fruit discussed. Educated on importance of physical activity. Congratulated patient on continued results. Follow up in 3 months or sooner if needed. Patient verbalizes understanding regarding plan of care and all questions answered. Assessment & Plan (12/15/2023 11:05 AM CDT): Weight is down from last visit. Continue Zepbound. Medication was sent to pharmacy. Discussed medication desired effects, potential side effects, and how to administer the medication. Nonpharmacological interventions such as low carb diet, high in vegetables and fruit discussed. Educated on importance of physical activity. Congratulated patient on continued results. Follow up in 3 months or sooner if needed. Patient verbalizes understanding regarding plan of care and all questions answered. Hypokalemia 12/15/2023 Overview (12/15/2023): penitentiary (20years per patient) use of 20meq daily. Assessment & Plan (03/14/2024 10:26 AM CDT): Continue therapy. Repeat levels pending. Advised patient to complete labs. Assessment & Plan (12/15/2023 11:03 AM CDT): Continue therapy. Repeat levels pending. Advised patient to complete labs. BMI 32.0-32.9,adult 12/15/2023 Assessment & Plan (03/14/2024 10:26 AM CDT): Discussed the patient's BMI. The BMI is above average. BMI management plan is completed. BMI Follow-up includes: nutrition counseling, exercise counseling and education provided. Assessment & Plan (12/15/2023 11:04 AM CDT): Discussed the patient's BMI. The BMI is above average. BMI management plan is completed. BMI Follow-up includes: nutrition counseling, exercise counseling and education provided. Chronic right-sided thoracic back pain Assessment & Plan (03/29/2023 4:18 PM CDT): Order a KUB No urinary issues NAVEEN (generalized anxiety disorder) 12/29/2022 Assessment & Plan (03/14/2024 10:24 AM CDT): Well controlled without medication. Assessment & Plan (12/15/2023 10:58 AM CDT): Well controlled without medication. Assessment & Plan (09/18/2023 5:04 PM AUTOMATIC PAINT SPRAYER OPERATOR): Patient has stopped Zoloft because she did not like the way it makes her feel. She reports that her anxiety is well controlled at this time. Assessment & Plan (12/29/2022 8:31 AM CDT): New problem. Start zoloft 25 mg daily. Discussed with patient about common side effects of medication including potential for worsening symptoms or new/worsening suicidal thoughts. Should this occur, patient should stop the medication immediately and call/RTC or go to ER. Medications for depression/anxiety can take up to 4-6 weeks to reach maximum effectiveness in the body. Call office to report any concerning side effects or new/worsening symptoms. Carpal tunnel syndrome of left wrist 02/28/2022 Assessment & Plan (02/28/2022 12:36 PM CDT): I will refer her back to her original surgeon Dr. Auguste She is worsening. She is having symptoms at any time day or night. Family history of breast cancer 07/13/2021 Assessment & Plan (03/14/2024 10:26 AM CDT): Advised to complete mammogram Assessment & Plan (09/18/2023 5:04 PM AUTOMATIC PAINT SPRAYER OPERATOR): Order placed for mammogram. Assessment & Plan (07/13/2021 4:59 PM AUTOMATIC PAINT SPRAYER OPERATOR): She has a very strong family history of breast cancer. She has had 5 sisters, her mother and a nephew who have had breast cancer. Her last mammogram was done in October of this year and was normal. I a.m. going to order BRCA1 and BRCA2 genetic testing Hyperlipidemia 02/26/2019 Assessment & Plan (03/14/2024 10:24 AM CDT): Patient refuses treatment with statin therapy. Assessment & Plan (12/15/2023 10:57 AM CDT): Patient refuses treatment with statin therapy. Advised to complete labs. Assessment & Plan (09/18/2023 5:03 PM AUTOMATIC PAINT SPRAYER OPERATOR): Patient refuses treatment with statin therapy. Repeat lipid panel pending. Assessment & Plan (12/29/2022 8:29 AM CDT): Continue crestor 5 mg daily. Will recheck labs. Assessment & Plan (02/28/2022 12:39 PM CDT): Patient is well controlled. Continue current treatment. lab Depression, major, recurrent 02/22/2019 Assessment & Plan (03/14/2024 10:25 AM CDT): PHQ0. Well controlled without medications. Assessment & Plan (12/15/2023 10:58 AM CDT): PHQ0. Well controlled without medications. Assessment & Plan (09/18/2023 5:04 PM AUTOMATIC PAINT SPRAYER OPERATOR): Patient has stopped sertraline. PHQ 0. Assessment & Plan (03/29/2023 4:13 PM CDT): Increase sertraline to 100 mg daily Assessment & Plan (02/28/2022 12:35 PM CDT): Patient is well controlled. Continue current treatment. Assessment & Plan (02/22/2019 8:45 AM CDT): Increase zoloft to 50 mg daily HTN (hypertension) 02/22/2019 Assessment & Plan (03/14/2024 10:24 AM CDT): Blood pressure at goal in office today. We will continue current regime of lisinopril 20 mg and triamterene/HCTZ 37.5mg-25mg daily. Assessment & Plan (12/15/2023 10:56 AM CDT): Blood pressure at goal in office today. We will continue current regime of lisinopril 20 mg and triamterene/HCTZ 37.5mg-25mg daily. Assessment & Plan (09/18/2023 5:03 PM AUTOMATIC PAINT SPRAYER OPERATOR): Blood pressure at goal in office today. We will continue current regime. Assessment & Plan (12/29/2022 8:29 AM CDT): Not to goal <140/90 but has been out of medications for a month. Restart her triamterene-HCTZ 37.5 mg-25 mg daily and lisinopril 20 mg daily. Assessment & Plan (02/28/2022 12:40 PM CDT): Patient is well controlled. Continue current treatment. Assessment & Plan (04/14/2021 9:48 AM CDT): Patient is well controlled. Continue current treatment. Will need to review lab Assessment & Plan (04/09/2020 11:55 AM CDT): Patient is well controlled. Continue current treatment. Assessment & Plan (02/22/2019 8:49 AM CDT): Patient is well controlled. Continue current treatment. Primary insomnia 06/13/2018 Assessment & Plan (03/14/2024 10:26 AM CDT): Improved. She reports she is sleeping better. Assessment & Plan (12/15/2023 10:58 AM CDT): Improved. She reports she is sleeping better. Assessment & Plan (09/18/2023 5:03 PM AUTOMATIC PAINT SPRAYER OPERATOR): Checking a CBC and iron profile. Discussed sleep hygiene with patient. Gastroesophageal reflux disease without esophagi tis 04/20/2016 Assessment & Plan (03/14/2024 10:24 AM CDT): Patient is well controlled on current medications. We will continue Prilosec 20 mg daily. Assessment & Plan (12/15/2023 10:57 AM CDT): Patient is well controlled on current medications. We will continue Prilosec 20 mg daily. Assessment & Plan (09/18/2023 5:04 PM AUTOMATIC PAINT SPRAYER OPERATOR): Patient is well controlled on current medications. We will continue Prilosec 20 mg daily. Assessment & Plan (04/14/2021 9:49 AM CDT): Patient is well controlled. Continue current treatment. Doing well Assessment & Plan (02/22/2019 8:49 AM CDT): Patient is well controlled. Continue current treatment. Restless legs syndrome 04/19/2016 Overview (02/21/2019): Not on treatment, patient was on Neurontin in the past but she has quit taking that. Assessment & Plan (12/15/2023 11:04 AM CDT): CBC and iron profile pending.Encouraged to complete labs. Assessment & Plan (09/18/2023 5:03 PM AUTOMATIC PAINT SPRAYER OPERATOR): CBC and iron profile pending. Solitary pulmonary nodule 04/19/2016 Overview (02/21/2019): Groundglass opacity in right lower lobe which has been stable for about 2 years. Chest x-ray done in January 2017 showed no active cardiopulmonary process. Resolved Problems Problem Noted Date Diagnosed Date Resolved Date Carpal tunnel syndrome 07/13/202102/28 Assessment & Plan (07/13/2021 5:03 PM AUTOMATIC PAINT SPRAYER OPERATOR): Left-sided. Mild. Knee pain, bilateral 10/15/2020 025 Assessment & Plan (07/13/2021 5:03 PM AUTOMATIC PAINT SPRAYER OPERATOR): Intermittent X ray mild oa Will do therapy at home Assessment & Plan (10/15/2020 11:47 AM AUTOMATIC PAINT SPRAYER OPERATOR): X rays Sed rate Syeda rf Uric acid Hand pain, left 10/15/2020 02/28/2022 Assessment & Plan (10/15/2020 11:53 AM AUTOMATIC PAINT SPRAYER OPERATOR): Sed rate Syeda rf Refer back to hand surgeon Add mobid 7.5 mg daily ncs LUE Abnormal chest x-ray 08/25/2020 022 Thoracic back pain 04/09/2020 Assessment & Plan (04/09/2020 11:55 AM CDT): PT Flexeril 5 mg bid prn mobic 7.5 mg daily Seizure disorder (CMS/HCC) 02/26/2019 0 10/17/2024 Overview (12/15/2023): Patient has not had seizures and significant period of time. She was just monitored. She has never been medicated per her account. Assessment & Plan (09/18/2023 5:02 PM AUTOMATIC PAINT SPRAYER OPERATOR): Patient has not had seizures and significant period of time. She was just monitored. Assessment & Plan (02/28/2022 12:40 PM CDT): No new orders Dyslipidemia 02/22/2019 12/15/2023 Assessment & Plan (09/18/2023 5:04 PM AUTOMATIC PAINT SPRAYER OPERATOR): Declines treatment with statins. Lipid panel pending. Assessment & Plan (04/14/2021 9:48 AM CDT): Patient is well controlled. Continue current treatment. Off lipitor Assessment & Plan (04/09/2020 11:56 AM CDT): Check lab Assessment & Plan (02/22/2019 8:49 AM CDT): Patient is well controlled. Continue current treatment. Precordial chest pain 05/16/20182018 Immunizations Immunization Administration Dates Next Due Influenza, Quadrivalent, Spl it, Preservative Free, Intramuscular 10/27/2023 Influenza, Trivalent, Preser vative Free, Intramuscular 07/19/2017,06/08/2016,07/25/2015 Influenza, Unspecified 10/17/2024(Deferr ed: Patient Refused),12/15/2023(Deferred: Patient Refused),09/18/2023(Deferred: Patient Refused),06/04/2022,06/04/2021, 020 Tdap 09/01/2023 Social History Tobacco Use Types Packs/Day Years Used Date Smoking Tobacco: Never Smokeless Tobacco: Never Tobacco Cessation:Counseling Given: Not Answered Alcohol Use Standard Drinks/Week Comments Never 0 (1 standard drink = 0.6 oz pur e alcohol) AUDIT-C Answer Date Recorded Q1: How often do you have a drink containing alcohol? Never 10/17/2024 Q2: How many drinks containi ng alcohol do you have on a typical day when you are drinking? Patient does not drink Q3: How often do you have si x or more drinks on one occasion? Never 10/17/2024 PHQ-2 Answer Date Recorded PHQ-2 Total Score (If total score is 3 or more points, staff should administer the PHQ-9) 0 10/17/2024 Personal Safety Answer Date Recorded Have you ever been in or are you currently in a harmful physical or emotional relationship or is someone making you feel afraid or unsafe? Denies 08/20/2023 Comments No Sex and Gender Information Value Date Recorded Sex Assigned at Not on file Legal Sex Female 1:12 AM AUTOMATIC PAINT SPRAYER OPERATOR Gender Identity Female 02/27/2022 8:55 PM CDT Sexual Orientation Straight 02/27/2022 8: 55 PM CDT Last Filed Vital Signs Vital Sign Reading Time Taken Comments Blood Pressure 120/80 10/17/2024 1:51 PM AUTOMATIC PAINT SPRAYER OPERATOR Pulse 84 10/17/2024 1:51 PM AUTOMATIC PAINT SPRAYER OPERATOR Temperature 36.8 C (98.2 F) 10/17/2024 1:51 PM AUTOMATIC PAINT SPRAYER OPERATOR Respiratory Rate 16 10/17/2024 1:51 PM AUTOMATIC PAINT SPRAYER OPERATOR Oxygen Saturation 98% 10/17/2024 1:51 PM AUTOMATIC PAINT SPRAYER OPERATOR Inhaled Oxygen Concentration - - Weight 79.8 kg (176 lb) 10/17/2024 1:51 PM AUTOMATIC PAINT SPRAYER OPERATOR Height 162.6 cm (5' 4 ) 10/17/2024 1:51 PM AUTOMATIC PAINT SPRAYER OPERATOR Body Mass Index 30.21 10/17/2024 1:51 PM AUTOMATIC PAINT SPRAYER OPERATOR Plan of Treatment Not on file Procedures Procedure Name Priority Date/Time Associated Diagnosis Comments SCREENING MAMMOGRAM BILATERAL W MERLY Schedule Routine, Read Routine (OP Routine) 07/31/2023 Encounter for screening mammogram for malignant neoplasm of breast HEPATITIS C ANTIBODY Routine 03/15/2022 Need for hepatitis C screening test from Last 3 Months or Most Recently Relevant to Health Maintenance Results * SCREENING MAMMOGRAM BILATERAL W MERLY (07/31/2023) Anatomical Region Laterality Modality Breast Bilateral Mammography Vitor Harding DO IMG MAMMO PROCEDURES Fin al Result * Hepatitis C antibody (03/15/2022) SCRIBED HCV ab negative EXTERNAL LAB Blood specimen (specimen) 03/15/2022 us Vitor Harding DO LAB MICROBIOLOGY - GENER AL ORDERABLES Final Result EXTERNAL LAB from Last 3 Months or Most Recently Relevant to Health Maintenance Insurance [employer]/PPO Address: [address] [place] [phone] [facility] HMO/PPO Address: [address] [place] [address] [facility] HMO/PPO Address: [address] [place] [phone] [address] [facility] HMO/PPO Address: [facility] [address] [place] [address] Care Teams French Binding Folder Relationship Specialty Start Date End Date Michelle Claudio NP [address] [place] [phone] PCP - General Internal Medicine 09/18/23
--- OUTSIDE RECORDS SUMMARY | 2024-10-21 14:45 | XMS_ITS | Encounter Summary ---
Author Organization [facility] Address [address] [place] [address] Care Team Providers Care Sales Advisory Manager Name Role Phone Eulalio Claudiosssergio SONI Primary Care Provider [phone] Encounter Details Date Type Department Care Team (Late st Contact Info) Description 11/15/2023 Orders Only [facility] Health Information Management [address] [place] [id number] Scanning, Provider Social History Tobacco Use Types [...] on file Legal Sex Female 1:12 AM SPECIAL PROCEDURE TECH Gender Identity Female 02/27/2022 8:55 PM CDT Sexual Orientation Straight 02/27/2022 8: 55 PM CDT documented as of this encounter Plan of Treatment Not on file documented as of this encounter Procedures Procedure Name Priority Date/Time Associated Diagnosis Comments SCAN - RADIOLOGY/IMAGING 11/15/2023 documented in this encounter Results * SCAN - RADIOLOGY/IMAGING (11/15/2023) Anatomical Region Laterality Modality Other us Provider Scanning Final Result documented in this encounter Visit Diagnoses Not on filedocumented in this encounter Additional Health Concerns Infection Onset Date Last Indicated Resolved Time COVID: Recovered Comment:Added based on recent COVID infection. 08/30/2023 09/18/2023 11/28/2023 3:06 AM C DT documented as of this encounter Care Teams Sales Advisory Manager Relationship Specialty Start Date End Date Michelle Claudio NP [address] [address] [place] [id number] PCP - General Internal Medicine 09/18/23 documented as of this encounter
--- OUTSIDE RECORDS SUMMARY | 2024-10-21 14:45 | XMS_ITS | Encounter Summary ---
Author Organization [facility] Facility Care Team Providers Care Content Assistant Name Role Phone No, Physician Primary Care Provider [phone] Vitor Harding DO Primary Care Provider + Urbano Donovan MD Unavailable [phone] Michelle Claudio NP Primary Care Provider [phone] Encounter Details Date Type Department Care Team (Latest Contact Info) Description 11/07/2008 Orders Only [facility] Provider, MD Gayatri [address] [place] [address] Social History Tobacco Use Types Packs/Day Years Used Date Smoking Tobacco: Never Assessed Comments Unknown Sex and Gender Information Value Date Recorded Sex Assigned at Not on file Legal Sex Female 1:12 AM STATION WORKER Gender Identity Female 02/27/2022 8:55 PM CDT [...] AM CDT Ordered by an unspecified provider. Historical Provider [facility] LE[facility] GRANT Final Result documented in this encounter Visit Diagnoses Not on filedocumented in this encounter Additional Health Concerns Infection Onset Date Last Indicated Resolved Time COVID: Suspected 08/20/2023 08/20/2023 08/20/2023 9:03 PM STATION WORKER COVID19 08/20/2023 08/20/2023 08/30/2023 3:05 AM STATION WORKER COVID: Recovered Comment:Added based on recent COVID infection. 08/30/2023 09/18/2023 11/28/2023 3:06 AM C DT documented as of this encounter Care Teams Content Assistant Relationship Specialty Start Date End Date No, Physician PCP - General 07/14/18 10/17/18 Vitor Harding DO PCP - General 10/18/18 09/17/23 Michelle Claudio NP [address] [place] [id number] PCP - General Internal Medicine 09/18/23 Urbano Donovan MD Consulting Physician Plastic Surgery 08/02/22 09/17/23 documented as of this encounter
--- OUTSIDE RECORDS SUMMARY | 2024-10-21 14:45 | XMS_ITS | Encounter Summary ---
Author Organization [facility] Facility Care Team Providers Care Drainage Inspector Name Role Phone No, Physician Primary Care Provider [phone] Vitor Harding DO Primary Care Provider + Urbano Donovan MD Unavailable [phone] Michelle Claudio NP Primary Care Provider [phone] Encounter Details Date Type Department Care Team (Latest Contact Info) Description 09/14/2010 Orders Only [facility] Provider, MD Gayatri [address] [place] [id number] Social History Tobacco Use Types Packs/Day Years Used Date Smoking Tobacco: Never Assessed Comments Unknown Sex and Gender Information Value Date Recorded Sex Assigned at Not on file Legal Sex Female 1:12 AM ACETYLENE CYLINDER PACKING MIXER Gender Identity Female 02/27/2022 8:55 PM CDT [...] COVID: Suspected 08/20/2023 08/20/2023 08/20/2023 9:03 PM ACETYLENE CYLINDER PACKING MIXER COVID19 08/20/2023 08/20/2023 08/30/2023 3:05 AM ACETYLENE CYLINDER PACKING MIXER COVID: Recovered Comment:Added based on recent COVID infection. 08/30/2023 09/18/2023 11/28/2023 3:06 AM C DT documented as of this encounter Care Teams Drainage Inspector Relationship Specialty Start Date End Date No, Physician PCP - General 07/14/18 10/17/18 Vitor Harding DO PCP - General 10/18/18 09/17/23 Michelle Claudio NP [address] [place] [place] [id number] PCP - General Internal Medicine 09/18/23 Urbano Donovan MD Consulting Physician Plastic Surgery 08/02/22 09/17/23 documented as of this encounter
--- OUTSIDE RECORDS SUMMARY | 2024-10-21 14:45 | XMS_ITS | Encounter Summary ---
Author Organization [facility] Facility Care Team Providers Care Senior Pastor Name Role Phone No, Physician Primary Care Provider [phone] Vitor Harding DO Primary Care Provider + Urbano Donovan MD Unavailable [phone] Michelle Claudio NP Primary Care Provider [phone] Encounter Details Date Type Department Care Team (Latest Contact Info) Description 05/15/2018 Orders Only [facility] Provider, MD Gayatri [address] [place] [address] Social History Tobacco Use Types Packs/Day Years Used Date Smoking Tobacco: Never Assessed Comments Unknown Sex and Gender Information Value Date Recorded Sex Assigned at Not on file Legal Sex Female 1:12 AM BITUMEN PLANT OPERATOR Gender Identity Female 02/27/2022 8:55 PM CDT Sexual Orientation Straight 02/27/2022 8: 55 PM CDT documented as of this encounter Plan of Treatment Not on file documented as of this encounter Procedures Procedure Name Priority Date/Time Associated Diagnosis Comments SCAN - LABS 05/15/2018 12:00 AM CDT SCAN - LABS 05/15/2018 12:00 AM CDT SCAN - LABS 05/15/2018 12:00 AM CDT documented in this encounter Results * SCAN - LABS (05/15/2018 12:00 AM CDT) Narrative 05/15/2018 12:00 AM CDT Ordered by an unspecified provider. Historical Provider Final Res ult * SCAN - LABS (05/15/2018 12:00 AM CDT) Narrative 05/15/2018 12:00 AM CDT Ordered by an unspecified provider. Historical Provider Final Res ult * SCAN - LABS (05/15/2018 12:00 AM CDT) Narrative 05/15/2018 12:00 AM CDT Ordered by an unspecified provider. Historical Provider Final Res ult documented in this encounter Visit Diagnoses Not on filedocumented in this encounter Additional Health Concerns Infection Onset Date Last Indicated Resolved Time COVID: Suspected 08/20/2023 08/20/2023 08/20/2023 9:03 PM BITUMEN PLANT OPERATOR COVID19 08/20/2023 08/20/2023 08/30/2023 3:05 AM BITUMEN PLANT OPERATOR COVID: Recovered Comment:Added based on recent COVID infection. 08/30/2023 09/18/2023 11/28/2023 3:06 AM C DT documented as of this encounter Care Teams Senior Pastor Relationship Specialty Start Date End Date No, Physician PCP - General 07/14/18 10/17/18 Vitor Harding DO PCP - General 10/18/18 09/17/23 Michelle Claudio NP [address] [facility] [place] [address] PCP - General Internal Medicine 09/18/23 Urbano Donovan MD Consulting Physician Plastic Surgery 08/02/22 09/17/23 documented as of this encounter
--- OUTSIDE RECORDS SUMMARY | 2024-10-21 14:45 | XMS_ITS | Encounter Summary ---
Author Organization [facility] Facility Care Team Providers Care Patient Flow Coordinator Name Role Phone No, Physician Primary Care Provider [phone] Vitor Harding DO Primary Care Provider + Urbano Donovan MD Unavailable [phone] Michelle Claudio NP Primary Care Provider [phone] Encounter Details Date Type Department Care Team (Latest Contact Info) Description 07/20/2017 Orders Only [facility] Provider, MD Gayatri [address] [place] [address] Social History Tobacco Use Types Packs/Day Years Used Date Smoking Tobacco: Never Assessed Comments Unknown Sex and Gender Information Value Date Recorded Sex Assigned at Not on file Legal Sex Female 1:12 AM EPITAXIAL REACTOR OPERATOR Gender Identity Female 02/27/2022 8:55 PM CDT Sexual Orientation Straight 02/27/2022 8: 55 PM CDT documented as of this encounter Plan of Treatment Not on file documented as of this encounter Procedures Procedure Name Priority Date/Time Associated Diagnosis Comments PROCEDURE - RESULT 07/20/2017 12 :00 AM EPITAXIAL REACTOR OPERATOR documented in this encounter Results * PROCEDURE - RESULT (07/20/2017 12:00 AM EPITAXIAL REACTOR OPERATOR) Narrative 07/20/2017 12:00 AM EPITAXIAL REACTOR OPERATOR Ordered by an unspecified provider. Historical Provider Final Res ult documented in this encounter Visit Diagnoses Not on filedocumented in this encounter Additional Health Concerns Infection Onset Date Last Indicated Resolved Time COVID: Suspected 08/20/2023 08/20/2023 08/20/2023 9:03 PM EPITAXIAL REACTOR OPERATOR COVID19 08/20/2023 08/20/2023 08/30/2023 3:05 AM EPITAXIAL REACTOR OPERATOR COVID: Recovered Comment:Added based on recent COVID infection. 08/30/2023 09/18/2023 11/28/2023 3:06 AM C DT documented as of this encounter Care Teams Patient Flow Coordinator Relationship Specialty Start Date End Date No, Physician PCP - General 07/14/18 10/17/18 Vitor Harding DO PCP - General 10/18/18 09/17/23 Michelle Claudio NP [address] [facility] [address] [place] [address] PCP - General Internal Medicine 09/18/23 Urbano Donovan MD Consulting Physician Plastic Surgery 08/02/22 09/17/23 documented as of this encounter
--- OUTSIDE RECORDS SUMMARY | 2024-10-21 14:45 | XMS_ITS | Encounter Summary ---
Author Organization [facility] Facility Care Team Providers Care Frame Cleaner Name Role Phone No, Physician Primary Care Provider [phone] Vitor Harding DO Primary Care Provider + Urbano Donovan MD Unavailable [phone] Michelle Claudio NP Primary Care Provider [phone] Encounter Details Date Type Department Care Team (Latest Contact Info) Description 01/16/2015 Orders Only [facility] Provider, MD Gayatri [address] [place] [address] Social History Tobacco Use Types Packs/Day Years Used Date Smoking Tobacco: Never Assessed Comments Unknown Sex and Gender Information Value Date Recorded Sex Assigned at Not on file Legal Sex Female 1:12 AM LIVE STUDY MANAGER Gender Identity Female 02/27/2022 8:55 PM CDT Sexual Orientation Straight 02/27/2022 8: 55 PM CDT documented as of this encounter Plan of Treatment Not on file documented as of this encounter Procedures Procedure Name Priority Date/Time Associated Diagnosis Comments SCAN - LABS 01/16/2017 12:00 AM CDT documented in this encounter Results * SCAN - LABS (01/16/2017 12:00 AM CDT) Narrative 01/16/2017 12:00 AM CDT Ordered by an unspecified provider. Historical Provider Final Res ult documented in this encounter Visit Diagnoses Not on filedocumented in this encounter Additional Health Concerns Infection Onset Date Last Indicated Resolved Time COVID: Suspected 08/20/2023 08/20/2023 08/20/2023 9:03 PM LIVE STUDY MANAGER COVID19 08/20/2023 08/20/2023 08/30/2023 3:05 AM LIVE STUDY MANAGER COVID: Recovered Comment:Added based on recent COVID infection. 08/30/2023 09/18/2023 11/28/2023 3:06 AM C DT documented as of this encounter Care Teams Frame Cleaner Relationship Specialty Start Date End Date No, Physician PCP - General 07/14/18 10/17/18 Vitor Harding DO PCP - General 10/18/18 09/17/23 Michelle Claudio NP [address] [facility] [address] [place] [address] PCP - General Internal Medicine 09/18/23 Urbano Donovan MD Consulting Physician Plastic Surgery 08/02/22 09/17/23 documented as of this encounter
--- OUTSIDE RECORDS SUMMARY | 2024-10-21 14:45 | XMS_ITS | Clinical Summary ---
Author Organization [facility] Address [address] [place] [address] Care Team Providers Care Human Relations Manager Name Role Phone Vitor Perez Primary Care Provider [phone] Allergies No known active allergies Social History Tobacco Use Types Packs/Day Years Used Date Smoking Tobacco: Never Smokeless Tobacco: Never Alcohol Use Standard Drinks/Week Comments Never 0 (1 standard drink = 0.6 oz pur e alcohol) AUDIT-C Answer Date Recorded Frequency of Alcohol Consumption Never 11/14/2019 Average Number of Drinks Not on file 020 Frequency of Binge Drinking Not on file 11/02 Comments No Sex and Gender Information Value Date Recorded Sex Assigned at Not on file Legal Sex Female 8:07 PM CDT Gender Identity Not on file Sexual Orientation Not on file Last Filed Vital Signs Vital Sign Reading Time Taken Comments Blood Pressure 123/82 11/14/2019 4:13 PM CDT Pulse 80 11/14/2019 4:13 PM CDT Temperature 36.8 C (98.2 F) 11/14/2019 4:13 PM CDT Respiratory Rate 18 11/14/2019 4:13 PM CDT Oxygen Saturation 99% 11/14/2019 4:13 PM CDT Inhaled Oxygen Concentration - - Weight 96 kg (211 lb 9.6 oz) 11/14/2019 4:13 PM CDT Height 165.1 cm (5' 5 ) 11/14/2019 4:13 PM CDT Body Mass Index 35.21 11/14/2019 4:13 PM CDT Plan of Treatment Health Maintenance Due Date Last Done Comments Colorectal Cancer Screening Colonoscopy (10 Years) 1964 Annual Physical 11/28/1967 PHQ-2 (Physician [place]) 1976 Hepatitis C 1982 DTaP, Tdap and Td Vaccines ( 1 - Tdap) 11/28/1983 Mammogram Screening 2004 Zoster Vaccines (1 of 2) 2014 COVID-19 Vaccine (1 - 2023-2 5 season) 2024 Influenza Adult (#1) 2024 07/19/2017, 06/08/2016, 07/25/2015 PHQ-2 (Physician [place]) 09/04/2024 Meningococcal B Vaccine Aged Out No l onger eligible based on patient's age to complete this topic Meningococcal Vaccine Aged Out No kassie rober eligible based on patient's age to complete this topic Pneumococcal Vaccine: Pediatrics (0 to 5 Years) and At-Risk Patients (6 to 64 Years) Aged Out No longer eligible b ased on patient's age to complete this topic RSV Immunizations Under 20 Months Aged Out No longer eligible b ased on patient's age to complete this topic Insurance [facility] Care Teams Human Relations Manager Relationship Specialty Start Date End Date Vitor Perez DO PCP - General 04/17/14
--- OUTSIDE RECORDS SUMMARY | 2024-10-21 14:45 | XMS_ITS | Encounter Summary ---
Author Organization [facility] Facility Care Team Providers Care Religious Education Director Name Role Phone No, Physician Primary Care Provider [phone] Vitor Harding DO Primary Care Provider + Urbano Donovan MD Unavailable [phone] Michelle Claudio NP Primary Care Provider [phone] Encounter Details Date Type Department Care Team (Latest Contact Info) Description 01/16/2017 Orders Only [facility] Provider, MD Gayatri [address] [place] [address] Social History Tobacco Use Types Packs/Day Years Used Date Smoking Tobacco: Never Assessed Comments Unknown Sex and Gender Information Value Date Recorded Sex Assigned at Not on file Legal Sex Female 1:12 AM COMMUNITY ARTS WORKER Gender Identity Female 02/27/2022 8:55 PM [...] COVID: Suspected 08/20/2023 08/20/2023 08/20/2023 9:03 PM COMMUNITY ARTS WORKER COVID19 08/20/2023 08/20/2023 08/30/2023 3:05 AM COMMUNITY ARTS WORKER COVID: Recovered Comment:Added based on recent COVID infection. 08/30/2023 09/18/2023 11/28/2023 3:06 AM C DT documented as of this encounter Care Teams Religious Education Director Relationship Specialty Start Date End Date No, Physician PCP - General 07/14/18 10/17/18 Vitor Harding DO PCP - General 10/18/18 09/17/23 Michelle Claudio NP [address] [facility] [address] [place] [address] PCP - General Internal Medicine 09/18/23 Urbano Donovan MD Consulting Physician Plastic Surgery 08/02/22 09/17/23 documented as of this encounter
--- OUTSIDE RECORDS SUMMARY | 2024-10-21 14:45 | XMS_ITS | Clinical Summary ---
Author Organization [facility] [address] [facility] Address [address] [place] [address] Care Team Providers Care Brand Marketing Coordinator Name Role Phone RonnieMichelle moser ZACHARIAH Primary Care Provider [phone] Allergies No known active allergies Medications ondansetron [...] mg total) by mouth daily 90 capsule 3 10/17/19 25 Active hydrOXYzine (ATARAX) 25 mg tabletIndications: NAVEEN (generalized anxiety disorder) Take 1 tablet (25 mg total) by mouth nightly 90 tablet 3 10/17/19 25 Active cyclobenzaprine (FLEXERIL) 10 mg tabletIndications: Restless legs syndrome Take 1 tablet (10 mg total) by mouth 3 (three) times a day as needed for muscle spasms 90 tablet 3 10/17/19 25 Active triamterene-hydroC HLOROthiazide 37.5-25 mg per tablet/capsuleIndi cations:Primary hypertension Take 1 tablet/capsule by mouth daily 90 tablet 3 10/17/19 25 Active potassium chloride ER 20 mEq CR tabletIndications: Hypokalemia Take 1 tablet (20 mEq total) by mouth daily 90 tablet 3 10/17/19 25 Active eszopiclone (LUNESTA) 1 mg tabletIndications: Insomnia Take 1 tablet (1 mg total) by mouth daily Take immediately before bedtime 90 tablet 1 10/17/19 25 Active tirzepatide, weight loss, (Zepbound) 5 mg/0.5 mL pen injectorIndication s:BMI 30.0-30.9,adult Inject 0.5 mL (5 mg total) under the skin every 7 days 2 mL 3 10/17/19 25 Active scopolamine 1 mg over [...] tablet/capsule by mouth daily 30 tablet 10/04/19 25 025 Discontin ued(Reord er) potassium chloride ER 20 mEq CR tabletIndications: Hypokalemia Take 1 tablet (20 mEq total) by mouth daily 30 tablet 10/04/19 25 025 Discontin ued(Reord er) omeprazole (PriLOSEC) 20 mg capsule Take 1 capsule (20 mg total) by mouth daily 30 capsule 10/04/19 25 025 Discontin ued(Reord er) lisinopriL (PRINIVIL,ZESTRIL) 20 mg tablet Take 1 tablet (20 mg total) by mouth daily 30 tablet 10/04/19 25 025 Discontin ued(Reord er) hydrOXYzine (ATARAX) 25 mg tablet Take 1 tablet (25 mg total) by mouth nightly 30 tablet 10/04/19 025 Discontin ued(Reord er) Active Problems Problem [...] all questions answered. Hypokalemia 12/15/2023 Overview (12/15/2023): MCFP (20years per patient) use of 20meq daily. [...] medication. Assessment & Plan (09/18/2023 5:04 PM ASSIGNMENT AGENT): Patient has stopped Zoloft because she did [...] mammogram Assessment & Plan (09/18/2023 5:04 PM ASSIGNMENT AGENT): Order placed for mammogram. Assessment & Plan (07/13/2021 4:59 PM ASSIGNMENT AGENT): She has a very strong family history [...] labs. Assessment & Plan (09/18/2023 5:03 PM ASSIGNMENT AGENT): Patient refuses treatment with statin therapy. Repeat [...] medications. Assessment & Plan (09/18/2023 5:04 PM ASSIGNMENT AGENT): Patient has stopped sertraline. PHQ 0. Assessment [...] daily. Assessment & Plan (09/18/2023 5:03 PM ASSIGNMENT AGENT): Blood pressure at goal in office today. [...] better. Assessment & Plan (09/18/2023 5:03 PM ASSIGNMENT AGENT): Checking a CBC and iron profile. Discussed [...] daily. Assessment & Plan (09/18/2023 5:04 PM ASSIGNMENT AGENT): Patient is well controlled on current medications. [...] labs. Assessment & Plan (09/18/2023 5:03 PM ASSIGNMENT AGENT): CBC and iron profile pending. Solitary pulmonary nodule 04/19/2016 Overview (02/21/2019): Groundglass opacity in right lower lobe which has been stable for about 2 years. Chest x-ray done in January 2017 showed no active cardiopulmonary process. Resolved Problems Problem Noted Date Diagnosed Date Resolved Date Carpal tunnel syndrome 07/13/202102/28 Assessment & Plan (07/13/2021 5:03 PM ASSIGNMENT AGENT): Left-sided. Mild. Knee pain, bilateral 10/15/2020 02/ 025 Assessment & Plan (07/13/2021 5:03 PM ASSIGNMENT AGENT): Intermittent X ray mild oa Will do therapy at home Assessment & Plan (10/15/2020 11:47 AM ASSIGNMENT AGENT): X rays Sed rate Syeda rf Uric acid Hand pain, left 10/15/2020 02/28/2022 Assessment & Plan (10/15/2020 11:53 AM ASSIGNMENT AGENT): Sed rate Syeda rf Refer back to [...] account. Assessment & Plan (09/18/2023 5:02 PM ASSIGNMENT AGENT): Patient has not had seizures and significant period of time. She was just monitored. Assessment & Plan (02/28/2022 12:40 PM CDT): No new orders Dyslipidemia 02/22/2019 12/15/2023 Assessment & Plan (09/18/2023 5:04 PM ASSIGNMENT AGENT): Declines treatment with statins. Lipid panel pending. Assessment & Plan (04/14/2021 9:48 AM CDT): Patient is well controlled. Continue current treatment. Off lipitor Assessment & Plan (04/09/2020 11:56 AM CDT): Check lab Assessment & Plan (02/22/2019 8:49 AM CDT): Patient is well controlled. Continue current treatment. Precordial chest pain 05/16/20182018 Encounters Date Type Department Care Team Description 10/17/2024 1:45 PM ASSIGNMENT AGENT Office Visit [facility] Internal Medicine [address] [place] [address] [address] [place] [address] Michelle Claudio NP BMI 30.0-30.9,adult (Primary Dx); Encounter for drug screening; NAVEEN (generalized anxiety disorder); BRCA2 gene mutation positive in female; Screening mammogram for breast cancer; Encounter for screening colonoscopy; Hypokalemia; Moderate episode of recurrent major depressive disorder (HCC); Mixed hyperlipidemia; Primary hypertension; Restless legs syndrome; Gastroesophageal reflux disease without esophagitis; Primary insomnia; Claustrophobia 08/05/2024 Orders Only [facility] Internal Medicine [address] [facility] [address] [place] [address] Michelle Claudio NP from Last 3 Months Immunizations Immunization Administration Dates Next Due Influenza, Quadrivalent, Spl it, Preservative Free, Intramuscular 10/27/2023 Influenza, Trivalent, Preser vative Free, Intramuscular 07/19/2017,06/08/2016,07/25/2015 Influenza, Unspecified 10/17/2024(Deferr ed: Patient Refused),12/15/2023(Deferred: Patient Refused),09/18/2023(Deferred: Patient Refused),06/04/2022,06/04/2021, 020 Tdap 09/01/2023 Surgical History Surgery Date Site/Laterality Comments HYSTERECTOMY TUBAL LIGATION CHOLECYSTECTOMY ESOPHAGOGASTRODUODENOSCOPY REDUCTION MAMMAPLASTY COLONOSCOPY 09/04/2013 - 10/04/2013 CARPAL TUNNEL RELEASE 09/04/2018 - 09/03/2019 Right LEG SKIN LESION BIOPSY / EXCISION 09/04/19 20 - 09/03/2020 Right right thigh - lesion removed - bx neg CARPAL TUNNEL RELEASE 08/02/2022 Left Medical History Medical History Date Comments Migraines GERD (gastroesophageal reflux disease) Hyperlipidemia RLS (restless legs syndrome) Solitary pulmonary nodule Hypertension Seizures (HCC) last seizure 202 0; stress induced Obesity Dyslipidemia Family History Medical History Relation Name Comments Prostate cancer Father Stroke Father Breast cancer Mother Relation Name Status Comments Father Mother Social History Tobacco Use Types Packs/Day Years [...] on file Legal Sex Female 1:12 AM ASSIGNMENT AGENT Gender Identity Female 02/27/2022 8:55 PM CDT Sexual Orientation Straight 02/27/2022 8: 55 PM CDT Obstetrics History Last Filed Vital Signs Vital Sign Reading Time Taken Comments Blood Pressure 120/80 10/17/2024 1:51 PM ASSIGNMENT AGENT Pulse 84 10/17/2024 1:51 PM ASSIGNMENT AGENT Temperature 36.8 C (98.2 F) 10/17/2024 1:51 PM ASSIGNMENT AGENT Respiratory Rate 16 10/17/2024 1:51 PM ASSIGNMENT AGENT Oxygen Saturation 98% 10/17/2024 1:51 PM ASSIGNMENT AGENT Inhaled Oxygen Concentration - - Weight 79.8 kg (176 lb) 10/17/2024 1:51 PM ASSIGNMENT AGENT Height 162.6 cm (5' 4 ) 10/17/2024 1:51 PM ASSIGNMENT AGENT Body Mass Index 30.21 10/17/2024 1:51 PM ASSIGNMENT AGENT Plan of Treatment Health Maintenance Due Date Last Done Comments Colon Cancer Screening-Colonoscopy 1964 Hepatitis B Screening 1982 Zoster Vaccine (1 of 2) 2014 Regular Well Visit/Exam 18-64 03/29/2024 03/29/2023, 02/28/2022, 10/15/2020, Additional history exists Covid-19 Vaccine ( season) 2024 09/10/2021, 05/13/2021, 04/15/2021 Influenza Vaccine (#1) 2024 , 06/04/2022, 06/04/2021, Additional history exists Breast Cancer Screening-Mammogram 07/31/2024 07/31/2023, 11/03/2020, 06/28/2018, Additional history exists Depression Screening 10/17/2025 10/17/2024, 12/15/2023, 09/18/2023, Additional history exists DTaP/Tdap/Td Vaccine (2 - Td or Tdap) 09/01/2033 09/01/2023 Hepatitis C Screening Completed 03/15/2022 Pneumococcal vaccine <65 Aged Out No longer eligible based on patient's age to complete this topic Procedures Procedure Name Priority Date/Time Associated Diagnosis [...] negative EXTERNAL LAB Blood specimen (specimen) 03/15/2022 Vitor Harding DO LAB MICROBIOLOGY - GENER AL ORDERABLES Final Result EXTERNAL LAB from Last 3 Months or Most Recently Relevant to Health Maintenance Insurance [facility] Care Teams Brand Marketing Coordinator Relationship Specialty Start Date End Date Michelle Claudio NP [address] [facility] [address] [place] [address] PCP - General Internal Medicine 09/18/23
--- OUTSIDE RECORDS SUMMARY | 2024-10-21 14:45 | XMS_ITS | Encounter Summary ---
Author Organization [facility] Address [address] [facility] [address] [place] [address] Care Team Providers Care Hotel Superintendent Name Role Phone No, Physician Primary Care Provider [phone] Vitor Harding DO Primary Care Provider + Urbano Donovan MD Unavailable [phone] Michelle Claudio NP Primary Care Provider [phone] Encounter Details Date Type Department Care Team (Late st Contact Info) Description 01/31/2012 Orders Only [facility] [address] [place] [address] Scanning, Provider Social History Tobacco Use Types Packs/Day Years Used Date Smoking Tobacco: Never Assessed Comments Unknown Sex and Gender Information Value Date Recorded Sex Assigned at Not on file Legal Sex Female 1:12 AM WASH MILL OPERATOR Gender Identity Female 02/27/2022 8:55 PM CDT Sexual Orientation Straight 02/27/2022 8: 55 PM CDT documented as of this encounter Plan of Treatment Not on file documented as of this encounter Procedures Procedure Name Priority Date/Time Associated Diagnosis Comments SCAN - RADIOLOGY/IMAGING 01/31/2012 documented in this encounter Results * SCAN - RADIOLOGY/IMAGING (01/31/2012) Anatomical Region Laterality Modality Other us Provider Scanning Final Result documented in this encounter Visit Diagnoses Not on filedocumented in this encounter Additional Health Concerns Infection Onset Date Last Indicated Resolved Time COVID: Suspected 08/20/2023 08/20/2023 08/20/2023 9:03 PM WASH MILL OPERATOR COVID19 08/20/2023 08/20/2023 08/30/2023 3:05 AM WASH MILL OPERATOR COVID: Recovered Comment:Added based on recent COVID infection. 08/30/2023 09/18/2023 11/28/2023 3:06 AM CDT documented as of this encounter Care Teams Hotel Superintendent Relationship Specialty Start Date End Date No, Physician PCP - General 07/14/18 10/17/18 Vitor Harding DO PCP - General 10/18/18 09/17/23 Michelle Claudio NP [address] [facility] [address] [place] [address] PCP - General Internal Medicine 09/18/23 Urbano Donovan MD Consulting Physician Plastic Surgery 08/02/22 09/17/23 documented as of this encounter
[2024-10-23 00:55] LABS: Amphetamines NEGATIVE ng/mL (<500); Barbiturates NEGATIVE ng/mL (<300); Benzodiazepines NEGATIVE ng/mL (<100); Cocaine Metabolite NEGATIVE ng/mL (<150); Marijuana Metabolite NEGATIVE ng/mL (<20); Methadone Metabolite NEGATIVE ng/mL (<100); Opiates NEGATIVE ng/mL (<100); Oxidant NEGATIVE mcg/mL (<200); PCP NEGATIVE ng/mL (<25)
== END 2024-10-21 12:20 | disposition home or self-care (01) ==
LOC: ANHLAB 12:21
PROVIDERS: Visit Provider Internal Medicine
DX: F41.1 Generalized anxiety disorder (principal)
CPT/HCPCS: 36415; 80307; 82533

== ENCOUNTER 2025-05-12 09:25 | Outpatient (CLI) | payer OTHER, SELFPAY ==
--- NOTE | ~2025-05-12 | MM_ITS ---
EXAMINATION: MM screening [facility] BI w parag HISTORY: Screening TECHNIQUE: Craniocaudal and mediolateral oblique 3-D tomosynthesis images were obtained and synthetic 2-D images were generated. CAD analysis was submitted and interpreted. COMPARISON: Comparison to multiple prior studies sequentially, with oldest reviewed study dated 10/28/2020. BREAST PARENCHYMAL COMPOSITION: There are scattered areas of fibroglandular density. FINDINGS: There is no evidence of suspicious mass, calcification, or architectural distortion to suggest malignancy in either breast. Scattered benign-appearing calcifications are present. IMPRESSION: 1. No mammographic evidence of malignancy. 2. Recommend routine screening mammography in one year. BI-RADS Category 2: Benign finding(s). Reviewed, dictated and finalized at location B.
--- OUTSIDE RECORDS SUMMARY | 2025-05-12 09:43 | XMS_ITS | Encounter Summary ---
Author Organization [facility] Facility Care Team Providers Care Aluminum Sheet Cutter Name Role Phone No, Physician Primary Care Provider [phone] Vitor Harding DO Primary Care Provider + Urbano Donovan MD Unavailable [phone] Michelle Claudio NP Primary Care Provider [phone] Encounter Details Date Type Department Care Team (Latest Contact Info) Description 09/14/2010 Orders Only [facility] Provider, MD Gayatri [address] [place] [address] Social History Tobacco Use Types Packs/Day Years Used Date Smoking Tobacco: Never Assessed Comments Unknown Sex and Gender Information Value Date Recorded Sex Assigned at Not on file Legal Sex Female 1:12 AM ASSOCIATE FIELD SERVICE ENGINEER Gender Identity Female 02/27/2022 8:55 PM CDT [...] COVID: Suspected 08/20/2023 08/20/2023 08/20/2023 9:03 PM ASSOCIATE FIELD SERVICE ENGINEER COVID19 08/20/2023 08/20/2023 08/30/2023 3:05 AM ASSOCIATE FIELD SERVICE ENGINEER COVID: Recovered Comment:Added based on recent COVID infection. 08/30/2023 09/18/2023 11/28/2023 3:06 AM C DT documented as of this encounter Care Teams Aluminum Sheet Cutter Relationship Specialty Start Date End Date No, Physician PCP - General 07/14/18 10/17/18 Vitor Harding DO PCP - General 10/18/18 09/17/23 Michelle Claudio NP [address] [address] PCP - General Internal Medicine 09/18/23 Urbano Donovan MD Consulting Physician Plastic Surgery 08/02/22 09/17/23 documented as of this encounter
--- OUTSIDE RECORDS SUMMARY | 2025-05-12 09:43 | XMS_ITS | Clinical Summary ---
Author Organization [facility] [address] [facility] Address [address] [place] [address] Care Team Providers Care Capital Equipment Specialist Name Role Phone Michelle Claudio NP Primary Care Provider [phone] Allergies No known active allergies Medications ondansetron ODT (ZOFRAN-ODT) 4 mg disintegrating tablet Take 1 tablet (4 mg total) by mouth every 8 (eight) hours as needed for nausea 20 tablet 024 Active lisinopriL (PRINIVIL,ZESTRIL ) 20 mg tabletIndications :Primary hypertension Take 1 tablet (20 mg total) by mouth daily 90 tablet 3 025 Active omeprazole (PriLOSEC) 20 mg capsuleIndication s:Gastroesophagea l reflux disease without esophagitis Take 1 capsule (20 mg total) by mouth daily 90 capsule 025 Active hydrOXYzine (ATARAX) 25 mg tabletIndications :NAVEEN (generalized anxiety disorder) Take 1 tablet (25 mg total) by mouth nightly 90 tablet 025 Active triamterene-hydro CHLOROthiazide 37.5-25 mg per tablet/capsuleInd ications:Primary hypertension Take 1 tablet/capsule by mouth daily 90 tablet 3 025 Active potassium chloride ER 20 mEq CR tabletIndications :Hypokalemia Take 1 tablet (20 mEq total) by mouth daily 90 tablet 3 025 Active eszopiclone (LUNESTA) 1 mg tabletIndications :Insomnia Take 1 tablet (1 mg total) by mouth daily Take immediately before bedtime 90 tablet 1 025 Active cyclobenzaprine (FLEXERIL) 10 mg tabletIndications :Restless legs syndrome TAKE 1 TABLET BY MOUTH THREE TIMES A DAY NEEDED FOR MUSCLE SPASMS 90 tablet 3 025 Active tirzepatide, weight loss, (ZEPBOUND) 12.5 mg/0.5 mL solution vialIndications:B NV 30.0-30.9,adult Inject 0.5 mL (12.5 mg total) under the skin every 7 days 2 mL 3 025 Active tirzepatide, weight loss, (ZEPBOUND) 10 mg/0.5 mL solution vial Inject 0.5 mL (10 mg total) under the skin every 7 days 2 mL 3 025 2024 Discontinued(P atient Reported) tirzepatide, weight loss, (ZEPBOUND) 12.5 mg/0.5 mL solution vialIndications:B NV 30.0-30.9,adult Inject 0.5 mL (12.5 mg total) under the skin every 7 days 2 mL 3 025 2024 Discontinued Active Problems Problem Noted Date Diagnosed Date Wellness examination 04/22/2025 Assessment & Plan (04/22/2025 8:31 AM CDT): Routine health maintenance objectives discussed and orders placed for any outstanding screening studies. Physical exam performed as above. Routine annual labs obtained and will be reviewed with patient when results available. Encouraged regular physical activity--moderate activity for a total of 150 minutes per week over 3-5 days. Encouraged healthy diet with regular fresh fruits and vegetables limited in processed carbohydrates. BMI 30.0-30.9,adult 04/17/2025 Assessment & Plan (04/22/2025 8:31 AM CDT): Discussed the patient's BMI. The BMI is above average. BMI management plan is completed. BMI Follow-up includes: nutrition counseling, exercise counseling and education provided. Encouraged regular physical activity--moderate activity for a total of 150 minutes per week over 3-5 days. Encouraged healthy diet with regular fresh fruits and vegetables limited in processed carbohydrates. Orders: tirzepatide, weight loss, (ZEPBOUND) 12.5 mg/0.5 mL solution vial; Inject 0.5 mL (12.5 mg total) under the skin every 7 days Hypokalemia 12/15/2023 Overview (12/15/2023): detention (20years per patient) use of 20meq daily. Assessment & Plan (04/22/2025 8:31 AM CDT): Continue Potassium 20meq daily. Assessment & Plan (03/14/2024 10:26 AM CDT): Continue therapy. Repeat levels pending. Advised patient to complete labs. Assessment & Plan (12/15/2023 11:03 AM CDT): Continue therapy. Repeat levels pending. Advised patient to complete labs. NAVEEN (generalized anxiety disorder) 12/29/2022 Assessment & Plan (03/14/2024 10:24 AM CDT): Well controlled without medication. Assessment & Plan (12/15/2023 10:58 AM CDT): Well controlled without medication. Assessment & Plan (09/18/2023 5:04 PM CLINICAL DOCUMENTATION CONSULTANT): Patient has stopped Zoloft because she did [...] of breast cancer 07/13/2021 Assessment & Plan (04/22/2025 8:31 AM CDT): Advised to complete mammogram. Advised that insurance pays annually. She tells me that her insurance will only pay bi annually. Assessment & Plan (03/14/2024 10:26 AM CDT): Advised to complete mammogram Assessment & Plan (09/18/2023 5:04 PM CLINICAL DOCUMENTATION CONSULTANT): Order placed for mammogram. Assessment & Plan (07/13/2021 4:59 PM CLINICAL DOCUMENTATION CONSULTANT): She has a very strong family history of breast cancer. She has had 5 sisters, her mother and a nephew who have had breast cancer. Her last mammogram was done in October of this year and was normal. I a.m. going to order BRCA1 and BRCA2 genetic testing Hyperlipidemia 02/26/2019 Assessment & Plan (04/22/2025 8:31 AM CDT): Levels remain elevated. Declines statin therapy. Orders: Lipid panel; Future Assessment & Plan (03/14/2024 10:24 AM CDT): Patient refuses treatment with statin therapy. Assessment & Plan (12/15/2023 10:57 AM CDT): Patient refuses treatment with statin therapy. Advised to complete labs. Assessment & Plan (09/18/2023 5:03 PM CLINICAL DOCUMENTATION CONSULTANT): Patient refuses treatment with statin therapy. Repeat [...] medications. Assessment & Plan (09/18/2023 5:04 PM CLINICAL DOCUMENTATION CONSULTANT): Patient has stopped sertraline. PHQ 0. Assessment & Plan (03/29/2023 4:13 PM CDT): Increase sertraline to 100 mg daily Assessment & Plan (02/28/2022 12:35 PM CDT): Patient is well controlled. Continue current treatment. Assessment & Plan (02/22/2019 8:45 AM CDT): Increase zoloft to 50 mg daily HTN (hypertension) 02/22/2019 Assessment & Plan (04/22/2025 8:31 AM CDT): Orders: CBC with auto differential; Future Comprehensive metabolic panel; Future Assessment & Plan (03/14/2024 10:24 AM CDT): Blood pressure at goal in office today. We will continue current regime of lisinopril 20 mg and triamterene/HCTZ 37.5mg-25mg daily. Assessment & Plan (12/15/2023 10:56 AM CDT): Blood pressure at goal in office today. We will continue current regime of lisinopril 20 mg and triamterene/HCTZ 37.5mg-25mg daily. Assessment & Plan (09/18/2023 5:03 PM CLINICAL DOCUMENTATION CONSULTANT): Blood pressure at goal in office today. [...] treatment. Primary insomnia 06/13/2018 Assessment & Plan (04/22/2025 8:31 AM CDT): Continue lunesta Assessment & Plan (03/14/2024 10:26 AM CDT): Improved. She reports she is sleeping better. Assessment & Plan (12/15/2023 10:58 AM CDT): Improved. She reports she is sleeping better. Assessment & Plan (09/18/2023 5:03 PM CLINICAL DOCUMENTATION CONSULTANT): Checking a CBC and iron profile. Discussed sleep hygiene with patient. Gastroesophageal reflux disease without esophagi tis 04/20/2016 Assessment & Plan (04/22/2025 8:31 AM CDT): Continue prn prilosec Assessment & Plan (03/14/2024 10:24 AM CDT): Patient is well controlled on current medications. We will continue Prilosec 20 mg daily. Assessment & Plan (12/15/2023 10:57 AM CDT): Patient is well controlled on current medications. We will continue Prilosec 20 mg daily. Assessment & Plan (09/18/2023 5:04 PM CLINICAL DOCUMENTATION CONSULTANT): Patient is well controlled on current medications. [...] has quit taking that. Assessment & Plan (04/22/2025 8:31 AM CDT): May use flexeril and hydroxyzine at night. Assessment & Plan (12/15/2023 11:04 AM CDT): CBC and iron profile pending.Encouraged to complete labs. Assessment & Plan (09/18/2023 5:03 PM CLINICAL DOCUMENTATION CONSULTANT): CBC and iron profile pending. Solitary pulmonary nodule 04/19/2016 Overview (02/21/2019): Groundglass opacity in right lower lobe which has been stable for about 2 years. Chest x-ray done in January 2017 showed no active cardiopulmonary process. Resolved Problems Problem Noted Date Diagnosed Date Resolved Date Encounter for weight management 12/15/2023 04/17/2025 Assessment & Plan (03/14/2024 10:25 AM CDT): [...] plan of care and all questions answered. BMI 32.0-32.9,adult 12/15/2023 04/17/20 25 Assessment & Plan (03/14/2024 10:26 AM CDT): [...] education provided. Chronic right-sided thoracic back pain 03/29/2023 04/17/2025 Assessment & Plan (03/29/2023 4:18 PM CDT): Order a KUB No urinary issues Carpal tunnel syndrome 07/13/202102/28 Assessment & Plan (07/13/2021 5:03 PM CLINICAL DOCUMENTATION CONSULTANT): Left-sided. Mild. Knee pain, bilateral 10/15/202010/17/ 025 Assessment & Plan (07/13/2021 5:03 PM CLINICAL DOCUMENTATION CONSULTANT): Intermittent X ray mild oa Will do therapy at home Assessment & Plan (10/15/2020 11:47 AM CLINICAL DOCUMENTATION CONSULTANT): X rays Sed rate Syeda rf Uric acid Hand pain, left 10/15/2020 02/28/2022 Assessment & Plan (10/15/2020 11:53 AM CLINICAL DOCUMENTATION CONSULTANT): Sed rate Syeda rf Refer back to hand surgeon Add mobid 7.5 mg daily ncs LUE Abnormal chest x-ray 08/25/2020 022 Thoracic back pain 04/09/2020 Assessment & Plan (04/09/2020 11:55 AM CDT): PT Flexeril 5 mg bid prn mobic 7.5 mg daily Seizure disorder 02/26/2019 10/17/2024 Overview (12/15/2023): Patient has not had seizures and significant period of time. She was just monitored. She has never been medicated per her account. Assessment & Plan (09/18/2023 5:02 PM CLINICAL DOCUMENTATION CONSULTANT): Patient has not had seizures and significant period of time. She was just monitored. Assessment & Plan (02/28/2022 12:40 PM CDT): No new orders Dyslipidemia 02/22/2019 12/15/2023 Assessment & Plan (09/18/2023 5:04 PM CLINICAL DOCUMENTATION CONSULTANT): Declines treatment with statins. Lipid panel pending. Assessment & Plan (04/14/2021 9:48 AM CDT): Patient is well controlled. Continue current treatment. Off lipitor Assessment & Plan (04/09/2020 11:56 AM CDT): Check lab Assessment & Plan (02/22/2019 8:49 AM CDT): Patient is well controlled. Continue current treatment. Precordial chest pain 05/16/20182018 Encounters Date Type Department Care Team Description 04/17/2025 2:00 PM CDT Office Visit [facility] Primary Care at [address] [phone] Michelle Claudio NP BMI 30.0-30.9,adult (Primary Dx); Mixed hyperlipidemia; Primary insomnia; Primary hypertension; Gastroesophageal reflux disease without esophagitis; Breast cancer screening by mammogram; Restless legs syndrome; Hypokalemia; Family history of breast cancer; Wellness examination 03/03/2025 Orders Only [facility] Primary Care at [address] [phone] Michelle Claudio NP 02/27/2025 Telephone [facility] Primary Care at [address] [phone] Michelle Claudio NP Med Refill from Last 3 Months Immunizations Immunization Administration [...] seizure 202 0; stress induced Obesity Dyslipidemia 02/22/2019 Anxiety 2004 Family History Medical History Relation Name Comments Prostate cancer Father Deshawn Casas Stroke Father Deshawn Casas Breast cancer Mother Relation Name Status Comments Father Deshawn Casas Mother Social History Tobacco Use Types Packs/Day Years Used Date Smoking Tobacco: Never Smokeless Tobacco: Never Tobacco Cessation:Counseling Given: Not Answered Alcohol Use Standard Drinks/Week Comments Never 0 (1 standard drink = 0.6 oz pur e alcohol) PHQ-2 Answer Date Recorded PHQ-2 Total Score (If total score is 3 or more points, staff should administer the PHQ-9) 0 04/17/2025 AUDIT-C Answer Date Recorded Q1: How often do you have a drink containing alcohol? Never 04/17/2025 Q2: How many drinks containi ng alcohol do you have on a typical day when you are drinking? Patient does not drink Q3: How often do you have si x or more drinks on one occasion? Never 04/17/2025 Personal Safety Answer Date Recorded Have you ever been in or are you currently in a harmful physical or emotional relationship or is someone making you feel afraid or unsafe? Denies 08/20/2023 Comments No Sex and Gender Information Value Date Recorded Sex Assigned at Not on file Legal Sex Female 1:12 AM CLINICAL DOCUMENTATION CONSULTANT Gender Identity Female 02/27/2022 8:55 PM CDT Sexual Orientation Straight 02/27/2022 8: 55 PM CDT Obstetrics History Last Filed Vital Signs Vital Sign Reading Time Taken Comments Blood Pressure 98/70 04/17/2025 1:59 PM CDT Pulse 67 04/17/2025 1:59 PM CDT Temperature 36.4 C (97.5 F) 04/17/2025 1:59 PM CDT Respiratory Rate 16 04/17/2025 1:59 PM CDT Oxygen Saturation 93% 04/17/2025 1:59 PM CDT Inhaled Oxygen Concentration - - Weight 81.2 kg (179 lb) 04/17/2025 1:59 PM CDT Height 162.6 cm (5' 4) 04/17/2025 1:59 PM CDT Body Mass Index 30.73 04/17/2025 1:59 PM CDT Plan of Treatment Health Maintenance Due Date Last Done Comments Colon Cancer Screening-Colonoscopy 1965 Zoster Vaccine (1 of 2) 2014 Breast Cancer Screening-Mammogram 07/31/2024 07/31/2023, 11/03/2020, 06/28/2018, Additional history exists Covid-19 Vaccine ( season) 2025 09/10/2021, 05/13/2021, 04/15/2021 Influenza Vaccine (#1) 2025 , 06/04/2022, 06/04/2021, Additional history exists Depression Screening 04/17/2026 04/17/2025, 10/17/2024, 12/15/2023, Additional history exists Regular Well Visit/Exam 18-64 04/17/2026 04/17/2025, 03/29/2023, 02/28/2022, Additional history exists DTaP/Tdap/Td Vaccine (2 - Td or Tdap) 09/01/2033 09/01/2023 Hepatitis C Screening Completed 03/15/2022 Hepatitis B Screening Discontinued Pneumococcal vaccine <65 Aged Out No longer [...] Anatomical Region Laterality Modality Breast Bilateral Mammography us Vitor Harding DO IMG MAMMO PROCEDURES Fin al Result * Hepatitis C antibody (03/15/2022) SCRIBED HCV ab negative EXTERNAL LAB Blood specimen (specimen) 03/15/2022 us Vitor Harding DO LAB MICROBIOLOGY - GENER AL ORDERABLES Final Result EXTERNAL LAB from Last 3 Months or Most Recently Relevant to Health Maintenance Insurance [facility] Care Teams Capital Equipment Specialist Relationship Specialty Start Date End Date Michelle Claudio NP [address] [facility] [address] [place] [address] PCP - General Internal Medicine 09/18/23
--- OUTSIDE RECORDS SUMMARY | 2025-05-12 09:43 | XMS_ITS | Encounter Summary ---
Author Organization [facility] Facility Care Team Providers Care Proof Clerk Name Role Phone No, Physician Primary Care Provider [phone] Vitor Harding DO Primary Care Provider + Urbano Donovan MD Unavailable [phone] Michelle Claudio NP Primary Care Provider [phone] Encounter Details Date Type Department Care Team (Latest Contact Info) Description 08/09/2017 Orders Only [facility] Provider, MD Gayatri [address] [place] [address] Social History Tobacco Use Types Packs/Day Years Used Date Smoking Tobacco: Never Assessed Comments Unknown Sex and Gender Information Value Date Recorded Sex Assigned at Not on file Legal Sex Female 1:12 AM POISER Gender Identity Female 02/27/2022 8:55 PM CDT Sexual Orientation Straight 02/27/2022 8: 55 PM CDT documented as of this encounter Plan of Treatment Not on file documented as of this encounter Procedures Procedure Name Priority Date/Time Associated Diagnosis Comments SCAN - LABS 09/05/2017 12:00 AM POISER documented in this encounter Results * SCAN - LABS (09/05/2017 12:00 AM POISER) Narrative 09/05/2017 12:00 AM POISER Ordered by an unspecified provider. us Historical Provider Final Res ult documented in this encounter Visit Diagnoses Not on filedocumented in this encounter Additional Health Concerns Infection Onset Date Last Indicated Resolved Time COVID: Suspected 08/20/2023 08/20/2023 08/20/2023 9:03 PM POISER COVID19 08/20/2023 08/20/2023 08/30/2023 3:05 AM POISER COVID: Recovered Comment:Added based on recent COVID infection. 08/30/2023 09/18/2023 11/28/2023 3:06 AM C DT documented as of this encounter Care Teams Proof Clerk Relationship Specialty Start Date End Date No, Physician PCP - General 07/14/18 10/17/18 Vitor Harding DO PCP - General 10/18/18 09/17/23 Michelle Claudio NP [address] [address] PCP - General Internal Medicine 09/18/23 Urbano Donovan MD Consulting Physician Plastic Surgery 08/02/22 09/17/23 documented as of this encounter
--- OUTSIDE RECORDS SUMMARY | 2025-05-12 09:43 | XMS_ITS | Encounter Summary ---
Author Organization [facility] Facility Care Team Providers Care Robotics Mechanic Name Role Phone No, Physician Primary Care Provider [phone] Vitor Harding DO Primary Care Provider + Urbano Donovan MD Unavailable [phone] Michelle Claudio NP Primary Care Provider [phone] Encounter Details Date Type Department Care Team (Latest Contact Info) Description 04/15/2016 Orders Only [facility] ProviderGayatri MD [address] [place] [address] Social History Tobacco Use Types Packs/Day Years Used Date Smoking Tobacco: Never Assessed Comments Unknown Sex and Gender Information Value Date Recorded Sex Assigned at Not on file Legal Sex Female 1:12 AM SHELLFISH GROWER Gender Identity Female 02/27/2022 8:55 PM CDT [...] COVID: Suspected 08/20/2023 08/20/2023 08/20/2023 9:03 PM SHELLFISH GROWER COVID19 08/20/2023 08/20/2023 08/30/2023 3:05 AM SHELLFISH GROWER COVID: Recovered Comment:Added based on recent COVID infection. 08/30/2023 09/18/2023 11/28/2023 3:06 AM C DT documented as of this encounter Care Teams Robotics Mechanic Relationship Specialty Start Date End Date No, Physician PCP - General 07/14/18 10/17/18 Vitor Harding DO PCP - General 10/18/18 09/17/23 Michelle Claudio NP [address] [facility] [address] [place] [address] PCP - General Internal Medicine 09/18/23 Urbano Donovan MD Consulting Physician Plastic Surgery 08/02/22 09/17/23 documented as of this encounter
--- OUTSIDE RECORDS SUMMARY | 2025-05-12 09:43 | XMS_ITS | Encounter Summary ---
Author Organization [facility] Facility Care Team Providers Care Retail Reset Merchandiser Name Role Phone No, Physician Primary Care Provider [phone] Vitor Harding DO Primary Care Provider + Urbano Donovan MD Unavailable [phone] Michelle Claudio NP Primary Care Provider [phone] Encounter Details Date Type Department Care Team (Latest Contact Info) Description 11/07/2008 Orders Only [facility] Provider, MD Gayatri [address] [place] [address] Social History Tobacco Use Types Packs/Day Years Used Date Smoking Tobacco: Never Assessed Comments Unknown Sex and Gender Information Value Date Recorded Sex Assigned at Not on file Legal Sex Female 1:12 AM FOREIGN LEGAL CONSULTANT Gender Identity Female 02/27/2022 8:55 PM [...] COVID: Suspected 08/20/2023 08/20/2023 08/20/2023 9:03 PM FOREIGN LEGAL CONSULTANT COVID19 08/20/2023 08/20/2023 08/30/2023 3:05 AM FOREIGN LEGAL CONSULTANT COVID: Recovered Comment:Added based on recent COVID infection. 08/30/2023 09/18/2023 11/28/2023 3:06 AM C DT documented as of this encounter Care Teams Retail Reset Merchandiser Relationship Specialty Start Date End Date No, Physician PCP - General 07/14/18 10/17/18 Vitor Harding DO PCP - General 10/18/18 09/17/23 Michelle Claudio NP [address] [address] PCP - General Internal Medicine 09/18/23 Urbano Donovan MD Consulting Physician Plastic Surgery 08/02/22 09/17/23 documented as of this encounter
--- OUTSIDE RECORDS SUMMARY | 2025-05-12 09:43 | XMS_ITS | Encounter Summary ---
Author Organization [facility] Facility Care Team Providers Care Concrete Paving Machine Operator Name Role Phone No, Physician Primary Care Provider [phone] Vitor Harding DO Primary Care Provider + Urbano Donovan MD Unavailable [phone] Michelle Claudio NP Primary Care Provider [phone] Encounter Details Date Type Department Care Team (Latest Contact Info) Description 09/11/2018 Orders Only [facility] Provider, MD Gayatri [address] [place] [address] Social History Tobacco Use Types Packs/Day Years Used Date Smoking Tobacco: Never Assessed Comments Unknown Sex and Gender Information Value Date Recorded Sex Assigned at Not on file Legal Sex Female 1:12 AM BURSAR Gender Identity Female 02/27/2022 8:55 PM CDT Sexual Orientation Straight 02/27/2022 8: 55 PM CDT documented as of this encounter Plan of Treatment Not on file documented as of this encounter Procedures Procedure Name Priority Date/Time Associated Diagnosis Comments PROCEDURE - RESULT 08/10/2018 12 :00 AM BURSAR documented in this encounter Results * PROCEDURE - RESULT (08/10/2018 12:00 AM BURSAR) Narrative 08/10/2018 12:00 AM BURSAR Ordered by an unspecified provider. us Historical Provider Final Res ult documented in this encounter Visit Diagnoses Not on filedocumented in this encounter Additional Health Concerns Infection Onset Date Last Indicated Resolved Time COVID: Suspected 08/20/2023 08/20/2023 08/20/2023 9:03 PM BURSAR COVID19 08/20/2023 08/20/2023 08/30/2023 3:05 AM BURSAR COVID: Recovered Comment:Added based on recent COVID infection. 08/30/2023 09/18/2023 11/28/2023 3:06 AM C DT documented as of this encounter Care Teams Concrete Paving Machine Operator Relationship Specialty Start Date End Date No, Physician PCP - General 07/14/18 10/17/18 Vitor Harding DO PCP - General 10/18/18 09/17/23 Michelle Claudio NP [address] [address] PCP - General Internal Medicine 09/18/23 Urbano Donovan MD Consulting Physician Plastic Surgery 08/02/22 09/17/23 documented as of this encounter
--- OUTSIDE RECORDS SUMMARY | 2025-05-12 09:43 | XMS_ITS | Encounter Summary ---
Author Organization [facility] Facility Care Team Providers Care Supervisor Brew [employer] Name Role Phone No, Physician Primary Care Provider [phone] Vitor Harding DO Primary Care Provider + Urbano Donovan MD Unavailable [phone] Michelle Claudio NP Primary Care Provider [phone] Encounter Details Date Type Department Care Team (Latest Contact Info) Description 05/15/2018 Orders Only [facility] Provider, MD Gayatri [address] [place] [address] Social History Tobacco Use Types Packs/Day Years Used Date Smoking Tobacco: Never Assessed Comments Unknown Sex and Gender Information Value Date Recorded Sex Assigned at Not on file Legal Sex Female 1:12 AM CONTINUOUS IMPROVEMENT INTERN Gender Identity Female 02/27/2022 8:55 PM CDT [...] Historical Provider MD Final Res ult * SCAN - LABS (05/15/2018 12:00 AM CDT) Narrative 05/15/2018 12:00 AM CDT Ordered by an unspecified provider. Historical Provider MD Final Res ult * SCAN - LABS (05/15/2018 12:00 AM CDT) Narrative 05/15/2018 12:00 AM CDT Ordered by an unspecified provider. us Historical Provider Final Res ult documented in this encounter Visit Diagnoses Not on filedocumented in this encounter Additional Health Concerns Infection Onset Date Last Indicated Resolved Time COVID: Suspected 08/20/2023 08/20/2023 08/20/2023 9:03 PM CONTINUOUS IMPROVEMENT INTERN COVID19 08/20/2023 08/20/2023 08/30/2023 3:05 AM CONTINUOUS IMPROVEMENT INTERN COVID: Recovered Comment:Added based on recent COVID infection. 08/30/2023 09/18/2023 11/28/2023 3:06 AM C DT documented as of this encounter Care Teams Supervisor Brew House Relationship Specialty Start Date End Date No, Physician PCP - General 07/14/18 10/17/18 Vitor Harding DO PCP - General 10/18/18 09/17/23 Michelle Claudio NP [address] [address] PCP - General Internal Medicine 09/18/23 Urbano Donovan MD Consulting Physician Plastic Surgery 08/02/22 09/17/23 documented as of this encounter
--- OUTSIDE RECORDS SUMMARY | 2025-05-12 09:43 | XMS_ITS | Encounter Summary ---
Author Organization [facility] Facility Care Team Providers Care Shipfitter Name Role Phone No, Physician Primary Care Provider [phone] Vitor Harding DO Primary Care Provider + Urbano Donovan MD Unavailable [phone] Michelle Claudio NP Primary Care Provider [phone] Encounter Details Date Type Department Care Team (Latest Contact Info) Description 07/20/2017 Orders Only [facility] Provider, MD Gayatri [address] [place] [address] Social History Tobacco Use Types Packs/Day Years Used Date Smoking Tobacco: Never Assessed Comments Unknown Sex and Gender Information Value Date Recorded Sex Assigned at Not on file Legal Sex Female 1:12 AM PRINTED CIRCUIT BOARDS LAMINATOR Gender Identity Female 02/27/2022 8:55 PM CDT Sexual Orientation Straight 02/27/2022 8: 55 PM CDT documented as of this encounter Plan of Treatment Not on file documented as of this encounter Procedures Procedure Name Priority Date/Time Associated Diagnosis Comments PROCEDURE - RESULT 07/20/2017 12 :00 AM PRINTED CIRCUIT BOARDS LAMINATOR documented in this encounter Results * PROCEDURE - RESULT (07/20/2017 12:00 AM PRINTED CIRCUIT BOARDS LAMINATOR) Narrative 07/20/2017 12:00 AM PRINTED CIRCUIT BOARDS LAMINATOR Ordered by an unspecified provider. us Historical Provider Final Res ult documented in this encounter Visit Diagnoses Not on filedocumented in this encounter Additional Health Concerns Infection Onset Date Last Indicated Resolved Time COVID: Suspected 08/20/2023 08/20/2023 08/20/2023 9:03 PM PRINTED CIRCUIT BOARDS LAMINATOR COVID19 08/20/2023 08/20/2023 08/30/2023 3:05 AM PRINTED CIRCUIT BOARDS LAMINATOR COVID: Recovered Comment:Added based on recent COVID infection. 08/30/2023 09/18/2023 11/28/2023 3:06 AM C DT documented as of this encounter Care Teams Shipfitter Relationship Specialty Start Date End Date No, Physician PCP - General 07/14/18 10/17/18 Vitor Harding DO PCP - General 10/18/18 09/17/23 Michelle Claudio NP [address] [address] PCP - General Internal Medicine 09/18/23 Urbano Donovan MD Consulting Physician Plastic Surgery 08/02/22 09/17/23 documented as of this encounter
--- OUTSIDE RECORDS SUMMARY | 2025-05-12 09:43 | XMS_ITS | Encounter Summary ---
Author Organization [facility] Facility Care Team Providers Care Printing Table Hand Name Role Phone No, Physician Primary Care Provider [phone] Vitor Harding DO Primary Care Provider + Urbano Donovan MD Unavailable [phone] Michelle Claudio NP Primary Care Provider [phone] Encounter Details Date Type Department Care Team (Latest Contact Info) Description 01/16/2017 Orders Only [facility] Provider, MD Gayatri [address] [place] [address] Social History Tobacco Use Types Packs/Day Years Used Date Smoking Tobacco: Never Assessed Comments Unknown Sex and Gender Information Value Date Recorded Sex Assigned at Not on file Legal Sex Female 1:12 AM MANUFACTURING MACHINE OPERATOR Gender Identity Female 02/27/2022 8:55 PM [...] COVID: Suspected 08/20/2023 08/20/2023 08/20/2023 9:03 PM MANUFACTURING MACHINE OPERATOR COVID19 08/20/2023 08/20/2023 08/30/2023 3:05 AM MANUFACTURING MACHINE OPERATOR COVID: Recovered Comment:Added based on recent COVID infection. 08/30/2023 09/18/2023 11/28/2023 3:06 AM C DT documented as of this encounter Care Teams Printing Table Hand Relationship Specialty Start Date End Date No, Physician PCP - General 07/14/18 10/17/18 Vitor Harding DO PCP - General 10/18/18 09/17/23 Michelle Claudio NP [address] [address] PCP - General Internal Medicine 09/18/23 Urbano Donovan MD Consulting Physician Plastic Surgery 08/02/22 09/17/23 documented as of this encounter
--- OUTSIDE RECORDS SUMMARY | 2025-05-12 09:43 | XMS_ITS | Encounter Summary ---
Author Organization [facility] Address [address] [place] [address] Care Team Providers Care Station Air Traffic Control Specialist Name Role Phone No, Physician Primary Care Provider Vitor Harding DO Primary Care Provider + Urbano Donovan MD Unavailable [phone] Michelle Claudio NP Primary Care Provider [phone] Encounter Details Date Type Department Care Team (Late st Contact Info) Description 01/31/2012 Orders Only [facility] Health Information Management [address] [place] [address] Scanning, Provider Social History Tobacco Use Types Packs/Day Years Used Date Smoking Tobacco: Never Assessed Comments Unknown Sex and Gender Information Value Date Recorded Sex Assigned at Not on file Legal Sex Female 1:12 AM ASSOCIATE PROFESSOR Gender Identity Female 02/27/2022 8:55 PM CDT [...] Suspected 08/20/2023 08/20/2023 08/20/2023 9:03 PM ASSOCIATE PROFESSOR COVID19 08/20/2023 08/20/2023 08/30/2023 3:05 AM ASSOCIATE PROFESSOR COVID: Recovered Comment:Added based on recent COVID infection. 08/30/2023 09/18/2023 11/28/2023 3:06 AM C DT documented as of this encounter Care Teams Station Air Traffic Control Specialist Relationship Specialty Start Date End Date No, Physician PCP - General 07/14/18 10/17/18 Vitor Harding DO PCP - General 10/18/18 09/17/23 Michelle Claudio NP [address] [address] PCP - General Internal Medicine 09/18/23 Urbano Donovan MD Consulting Physician Plastic Surgery 08/02/22 09/17/23 documented as of this encounter
--- OUTSIDE RECORDS SUMMARY | 2025-05-12 09:43 | XMS_ITS | Encounter Summary ---
Author Organization [facility] Facility Care Team Providers Care Intellectual Property Counsel Name Role Phone No, Physician Primary Care Provider [phone] Vitor Harding DO Primary Care Provider + Urbano Donovan MD Unavailable [phone] Michelle Claudio NP Primary Care Provider [phone] Encounter Details Date Type Department Care Team (Latest Contact Info) Description 08/10/2018 Orders Only [facility] Provider, MD Gayatri [address] [place] [address] Social History Tobacco Use Types Packs/Day Years Used Date Smoking Tobacco: Never Assessed Comments Unknown Sex and Gender Information Value Date Recorded Sex Assigned at Not on file Legal Sex Female 1:12 AM IMMUNOLOGY TEACHER Gender Identity Female 02/27/2022 8:55 PM CDT Sexual Orientation Straight 02/27/2022 8: 55 PM CDT documented as of this encounter Plan of Treatment Not on file documented as of this encounter Procedures Procedure Name Priority Date/Time Associated Diagnosis Comments PROCEDURE - RESULT 08/10/2018 12 :00 AM IMMUNOLOGY TEACHER documented in this encounter Results * PROCEDURE - RESULT (08/10/2018 12:00 AM IMMUNOLOGY TEACHER) Narrative 08/10/2018 12:00 AM IMMUNOLOGY TEACHER Ordered by an unspecified provider. us Historical Provider Final Res ult documented in this encounter Visit Diagnoses Not on filedocumented in this encounter Additional Health Concerns Infection Onset Date Last Indicated Resolved Time COVID: Suspected 08/20/2023 08/20/2023 08/20/2023 9:03 PM IMMUNOLOGY TEACHER COVID19 08/20/2023 08/20/2023 08/30/2023 3:05 AM IMMUNOLOGY TEACHER COVID: Recovered Comment:Added based on recent COVID infection. 08/30/2023 09/18/2023 11/28/2023 3:06 AM C DT documented as of this encounter Care Teams Intellectual Property Counsel Relationship Specialty Start Date End Date No, Physician PCP - General 07/14/18 10/17/18 Vitor Harding DO PCP - General 10/18/18 09/17/23 Michelle Claudio NP [address] [address] PCP - General Internal Medicine 09/18/23 Urbano Donovan MD Consulting Physician Plastic Surgery 08/02/22 09/17/23 documented as of this encounter
--- OUTSIDE RECORDS SUMMARY | 2025-05-12 09:43 | XMS_ITS | Encounter Summary ---
Author Organization [facility] Facility Care Team Providers Care Mobile Plant Operators Name Role Phone No, Physician Primary Care Provider [phone] Vitor Harding DO Primary Care Provider + Urbano Donovan MD Unavailable [phone] Michelle Claudio NP Primary Care Provider [phone] Encounter Details Date Type Department Care Team (Latest Contact Info) Description 01/16/2015 Orders Only [facility] Provider, MD Gayatri [address] [place] [address] Social History Tobacco Use Types Packs/Day Years Used Date Smoking Tobacco: Never Assessed Comments Unknown Sex and Gender Information Value Date Recorded Sex Assigned at Not on file Legal Sex Female 1:12 AM ENVIRONMENTAL REMEDIATION SPECIALIST Gender Identity Female 02/27/2022 8:55 PM CDT [...] COVID: Suspected 08/20/2023 08/20/2023 08/20/2023 9:03 PM ENVIRONMENTAL REMEDIATION SPECIALIST COVID19 08/20/2023 08/20/2023 08/30/2023 3:05 AM ENVIRONMENTAL REMEDIATION SPECIALIST COVID: Recovered Comment:Added based on recent COVID infection. 08/30/2023 09/18/2023 11/28/2023 3:06 AM C DT documented as of this encounter Care Teams Mobile Plant Operators Relationship Specialty Start Date End Date No, Physician PCP - General 07/14/18 10/17/18 Vitor Harding DO PCP - General 10/18/18 09/17/23 Michelle Claudio NP [address] [address] PCP - General Internal Medicine 09/18/23 Urbano Donovan MD Consulting Physician Plastic Surgery 08/02/22 09/17/23 documented as of this encounter
--- OUTSIDE RECORDS SUMMARY | 2025-05-12 09:43 | XMS_ITS | Encounter Summary ---
Author Organization [facility] Facility Care Team Providers Care Rib Cutter Name Role Phone No, Physician Primary Care Provider [phone] Vitor Harding DO Primary Care Provider + Urbano Donovan MD Unavailable [phone] Michelle Claudio NP Primary Care Provider [phone] Encounter Details Date Type Department Care Team (Latest Contact Info) Description 08/09/2016 Orders Only [facility] Provider, MD Gayatri [address] [place] [address] Social History Tobacco Use Types Packs/Day Years Used Date Smoking Tobacco: Never Assessed Comments Unknown Sex and Gender Information Value Date Recorded Sex Assigned at Not on file Legal Sex Female 1:12 AM CITY ENGINEER Gender Identity Female 02/27/2022 8:55 PM CDT Sexual Orientation Straight 02/27/2022 8: 55 PM CDT documented as of this encounter Plan of Treatment Not on file documented as of this encounter Procedures Procedure Name Priority Date/Time Associated Diagnosis Comments SCAN - LABS 08/10/2016 12:00 AM CITY ENGINEER documented in this encounter Results * SCAN - LABS (08/10/2016 12:00 AM CITY ENGINEER) Narrative 08/10/2016 12:00 AM CITY ENGINEER Ordered by an unspecified provider. us Historical Provider Final Res ult documented in this encounter Visit Diagnoses Not on filedocumented in this encounter Additional Health Concerns Infection Onset Date Last Indicated Resolved Time COVID: Suspected 08/20/2023 08/20/2023 08/20/2023 9:03 PM CITY ENGINEER COVID19 08/20/2023 08/20/2023 08/30/2023 3:05 AM CITY ENGINEER COVID: Recovered Comment:Added based on recent COVID infection. 08/30/2023 09/18/2023 11/28/2023 3:06 AM C DT documented as of this encounter Care Teams Rib Cutter Relationship Specialty Start Date End Date No, Physician PCP - General 07/14/18 10/17/18 Vitor Harding DO PCP - General 10/18/18 09/17/23 Michelle Claudio NP [address] [address] PCP - General Internal Medicine 09/18/23 Urbano Donovan MD Consulting Physician Plastic Surgery 08/02/22 09/17/23 documented as of this encounter
--- OUTSIDE RECORDS SUMMARY | 2025-05-12 09:43 | XMS_ITS | Encounter Summary ---
Author Organization [facility] Facility Care Team Providers Care Brim Pouncer Name Role Phone No, Physician Primary Care Provider [phone] Vitor Harding DO Primary Care Provider + Urbano Donovan MD Unavailable [phone] Michelle Claudio NP Primary Care Provider [phone] Encounter Details Date Type Department Care Team (Latest Contact Info) Description 07/06/2018 Orders Only [facility]INCONV Provider, MD Gayatri [address] [place] [address] Social History Tobacco Use Types Packs/Day Years Used Date Smoking Tobacco: Never Assessed Comments Unknown Sex and Gender Information Value Date Recorded Sex Assigned at Not on file Legal Sex Female 1:12 AM WORK ENVIRONMENT SAFETY INSPECTOR Gender Identity Female 02/27/2022 8:55 PM CDT Sexual Orientation Straight 02/27/2022 8: 55 PM CDT documented as of this encounter Plan of Treatment Not on file documented as of this encounter Procedures Procedure Name Priority Date/Time Associated Diagnosis Comments SCAN - PATHOLOGY 07/12/2018 12:0 0 AM WORK ENVIRONMENT SAFETY INSPECTOR PROCEDURE - RESULT 06/22/2018 12 :00 AM CDT documented in this encounter Results * SCAN - PATHOLOGY (07/12/2018 12:00 AM WORK ENVIRONMENT SAFETY INSPECTOR) Narrative 07/12/2018 12:00 AM WORK ENVIRONMENT SAFETY INSPECTOR Ordered by an unspecified provider. Historical Provider Final Res ult * PROCEDURE - RESULT (06/22/2018 12:00 AM CDT) Narrative 06/22/2018 12:00 AM CDT Ordered by an unspecified provider. Historical Provider Final Res ult documented in this encounter Visit Diagnoses Not on filedocumented in this encounter Additional Health Concerns Infection Onset Date Last Indicated Resolved Time COVID: Suspected 08/20/2023 08/20/2023 08/20/2023 9:03 PM WORK ENVIRONMENT SAFETY INSPECTOR COVID19 08/20/2023 08/20/2023 08/30/2023 3:05 AM WORK ENVIRONMENT SAFETY INSPECTOR COVID: Recovered Comment:Added based on recent COVID infection. 08/30/2023 09/18/2023 11/28/2023 3:06 AM C DT documented as of this encounter Care Teams Brim Pouncer Relationship Specialty Start Date End Date No, Physician PCP - General 07/14/18 10/17/18 Vitor Harding DO PCP - General 10/18/18 09/17/23 Michelle Claudio NP [address] [address] PCP - General Internal Medicine 09/18/23 Urbano Donovan MD Consulting Physician Plastic Surgery 08/02/22 09/17/23 documented as of this encounter
== END 2025-05-12 09:26 | disposition home or self-care (01) ==
LOC: ANHFOHIMG 09:27
DX: Z12.31 Encounter for screening mammogram for malignant neoplasm of breast (principal)
CPT/HCPCS: 77063; 77067

== ENCOUNTER 2025-09-01 14:27 | Emergency (ER) | payer OTHER, SELFPAY ==
[2025-09-01 14:43] VITALS: BP 148/97; PULSE 69; RESP 16; TEMP 36.8; O2SAT 100
--- NOTE | 2025-09-01 14:45 | ED_ITS ---
HPI - URI/Sore Throat General Chief Complaint: Upper Respiratory Infection Stated Complaint: uri symptoms Time Seen by Provider: 09/01/25 14:47 Source: patient, RN notes reviewed and old records reviewed Mode of arrival: ambulatory Limitations: no limitations History of Present Illness HPI Narrative: 59-year-old female presents to the [facility] with 2 day history of congestion. No treatment prior to arrival. Has had multiple exposures to COVID-19 Treatments prior to arrival: none and ibuprofen Related Data Home Medications ?Medication ?Instructions ?Recorded ?Confirmed ?Last Taken ?Type hydrochlorothiazide 25 mg tablet 25 mg PO DAILY 01/06/22 Unknown History lisinopril 20 mg tablet 20 mg PO DAILY 01/06/2201/23 Unknown History omeprazole 20 mg capsule,delayed 20 mg PO DAILY 01/06/22 Unknown History release potassium chloride 20 mEq 20 meq PO DAILY 01/06/2201/23 Unknown History tablet,extended release(part/cryst) (Klor-Con M) triamterene 37.5 1 cap PO DAILY 01/06/2201/23 Unknown History mg-hydrochlorothiazide 25 mg capsule Allergies Allergy/AdvReac Type Severity Reaction Status Date / Time No Known Allergies Allergy Unknown Verified 09/01/25 14:56 Review of Systems Review of Systems: All systems reviewed & are unremarkable except as noted in HPI and below Constitutional: Constitutional: Reports no additional constitutional complaints ENT: Reports as per HPI and Reports nasal congestion Cardiovascular: Cardiovascular: Reports no additional cardiovascular complaints, Denies chest pain and Denies dyspnea Respiratory: Respiratory: Reports no additional respiratory complaints, Denies chest congestion, Denies cough and Denies dyspnea Musculoskeletal: Musculoskeletal: Reports no additional musculoskeletal complaints Integumentary/Breasts: Skin/Breast: Reports system reviewed and no additional complaints, except as [facility]u [facility] Past Medical History Medical History H/O gastroesophageal reflux (GERD) History of high blood pressure Social History Social History Smoking status: Never smoker Alcohol intake: never Substance use: never Comments At the time of my signature, I reviewed and agree with the nursing past medical, surgical, social, and family history. There is no relevant family history perti nent to the patient complaint. Exam Const: General: cooperative, healthy appearing, comfortable, no acute distress, well developed, alert and well nourished Nutritional Appearance: well nourished Orientation/consciousness: patient oriented x3 Limitations: no limitations HENMT: Head: normal to inspection Ears: hearing grossly normal bilaterally, external ears normal, TM's normal bilaterally, EAC's normal, mastoids normal and no periauricular adenopathy Mouth: Yes Normal oral and palatal mucosa present, Yes lip normal, Yes tongue normal and Yes moist mucous membranes Throat: posterior oropharynx normal, uvula midline and no uvular edema Eyes: General: appearance normal, both eyes and all related structures Alignment and Position: alignment normal Neck: Neck: normal visual inspection, full ROM, no lymphadenopathy and no meningeal signs Chest: Chest palpation & inspection: normal inspection of the chest Resp: Effort & Inspection: normal respiratory effort and able to speak in complete sentences Auscultation: clear to auscultation bilaterally, no crackles, no rales, no rhonchi and no wheezes Cardio: Rate: regular rate Skin: General skin exam: normal color and no rashes or lesions noted Neuro: General: patient oriented x3, gait normal, moves all extremities and no meningeal signs Cognition (Neuro): normal cognition Speech: normal speech Gait exam (Neuro): Normal gait present Extrem: General: normal to inspection, full ROM, capillary refill normal and normal gait Psych: Appearance: grossly normal and well kempt Mental Status: mental status grossly normal Speech and movement: Normal speech and movement present and Clear speech present Affect: normal affect Attitude: cooperative Course Course Level of Care: Express Care Visit Vital Signs Vital signs: Vital Signs Temperature 98.3 F 09/01/25 14:43 Pulse Rate 69 09/01/25 14:43 Respiratory Rate 16 09/01/25 14:43 Blood Pressure 148/97 H 09/01/25 14:43 Pulse Oximetry 100 09/01/25 14:43 Temperature 98.3 F 09/01/25 14:43 Pulse Rate 69 09/01/25 14:43 Respiratory Rate 16 09/01/25 14:43 Blood Pressure 148/97 H 09/01/25 14:43 Pulse Oximetry 100 09/01/25 14:43 reviewed MDM MDM Narrative Medical decision making narrative: Patient sitting in exam room. Patient is nontoxic, vitals stable. Patient appears uncomfortable but not acutely ill. Patient is positive for COVID-19. Patient on return of a statin, no recent creatinine is noted in file. Patient appropriate for outpatient treatment with close follow-up Discharge instructions reviewed with patient, as well as provided in writing per nursing staff. The instructions also include specific and strict return/GO TO THE ER as well as f/u information. All questions have been answered, and the patient deny any further questions with discharge and discharge plan. Some parts of this dictation were generated by voice recognition software and may contain typographical and/or grammatical inaccuracies. Differential Diagnosis Differential Diagnosis: Differential diagnostic considerations for upper respiratory infection include upper respiratory infection, croup, otitis media, sinusitis, viral infection, bronchitis, influenza, pharyngitis, strep, uvulitis.? Lab Data MDM Lab Attestation statement: I personally reviewed the patient's lab results. Labs: Lab Results 09/01/25 09/01/25 Range/Units 14:37 14:52 POC Influenza A Ag Negative Negative (Negative) POC Influenza B Ag Negative Negative (Negative) POC SARS CoV-2 Ag Positive (Negative) Reviewed Discharge Plan Discharge Clinical Impression: COVID-19 Patient Disposition: Home Condition: Stable Instructions: Antibiotic Form, COVID-19 (Coronavirus Disease 2019) (ED), COVID- 19 and Chronic Health Conditions (ED), COVID-19: Slow the Coronavirus Spread (ED) Additional Instructions: Your rapid COVID test was positive for COVID-19 Your rapid flu test was negative Your symptoms are due to a viral illness, which is not treated with antibiotics. Typically viral infections last 7-10 days, can linger for couple of weeks. It is very important to treat your symptoms. Drink plenty of water, Gatorade, Pedialyte, ice pops or Jell-O. -Alternate Tylenol and Motrin per package directions for fever or pain. You can alternate every 4 hours -Antihistamine medication such as Zyrtec/Claritin during the day can help improve symptoms. -doing daily nasal irrigations can help relieve pressure your sinuses. Things like a Neti pot -Use Flonase twice a day for 5 days then daily to help reduce the inflammation and dry up your sinuses. -You can also use Coricidin HBP or Mucinex. Be sure to drink plenty of water with this medication at least 8 ounces with every dose and it is important to drink 8 to 10 glasses of water per day. Water is a natural decongestant -Eat and drink things that are easy to swallow, like tea or soup, or popsicles. -Oral rinses such as: Salt water gargles and/or may use topical anesthetic (eg. Chloraseptic spray) or lozenges to relieve dryness or throat pain). -Frequent hand washing or hand mainspring winder and oiler is one of the best ways to prevent spread of infection. -Using a vaporizer or humidifier at night will also help thin secretions and help with coughing up phlegm. -Follow up with primary care provider in 7-10 days if condition is not improving - For new or worsening symptoms go directly to the nearest ER Patient Language: Cuban Prescriptions: No Action potassium chloride [Klor-Con M20] 20 mEq tablet,ER particles/crystals 20 meq PO DAILY omeprazole 20 mg capsule,delayed release(DR/EC) 20 mg PO DAILY triamterene-hydrochlorothiazid 37.5-25 mg capsule 1 cap PO DAILY lisinopril 20 mg tablet 20 mg PO DAILY hydrochlorothiazide 25 mg tablet 25 mg PO DAILY Follow-up/Referrals: González,Michelle Navarrete APRN [Primary Care Provider, Unknown] - 2 Weeks Clinical Impression: COVID-19 Stand Alone Forms: Work/School Release IP Time of Disposition: 14:54
[2025-09-01 14:48] LABS: EDCOVIDSCREEN Positive (Negative)
[2025-09-01 14:54] LABS: EDINFLUASCREEN Negative (Negative); EDINFLUBSCREEN Negative (Negative)
[2025-09-01 14:58] LABS: EDINFLUASCREEN Negative (Negative); EDINFLUBSCREEN Negative (Negative)
== END 2025-09-01 15:00 | disposition home or self-care (01) ==
PROVIDERS: Emergency Provider Nurse Practitioner; PCP Nurse Practitioner
DX: U07.1 COVID-19 (principal); I10 Essential (primary) hypertension; K21.9 Gastro-esophageal reflux disease without esophagitis
CPT/HCPCS: 87426; 87804; 99212; G0463